=== PATIENT | male | born 1980 | race Caucasian/White ===

== ENCOUNTER 2019-09-14 17:02 | Inpatient (IN) | payer OTHER ==
--- NOTE | 2019-09-14 17:44 | BHS.RME ---
Substance Use & Tx History - Substance Use History Benzodiazepines Substance amount: 4-6 4 mg Frequency of use: Daily Substance route: Oral Date of Last Use: 09/14/19 Cocaine (Powder) Substance amount: a few blasts Frequency of use: Less than 3 times per week Substance route: Inhalation (ex: sniffing or snorting) Date of Last Use: 09/12/19 Opiates (Other) Substance amount: Methadone 190 mg Frequency of use: Daily Substance route: Oral Date of Last Use: 09/14/19 ([facility]) Alcohol Substance amount: 6 - 12 oz beers daily Frequency of use: Daily Substance route: Oral Date of Last Use: 09/14/19 (1 p.m.) - Last Treatment Treatment type: Substance Use Disorder (NIRAJ) Where was last treatment: Opioid Treatment Program (OTP) ([facility]) Physical/Psych/Mental Status - Behavior General Behavior: Increased activity (restlessness, agitation) Eye Contact: Normal - Cooperativeness Cooperativeness: Cooperative - Thinking Thought Processes: Goal Directed Thought content: Future oriented - Physical Health Problems Is patient presently having any pain?: No Does patient presently have any injuries (include location): No Does patient currently have a fever: No CIWA Nausea/Vomitin-No Nausea/No Vomiting Muscle Tremors: 3 Anxiety: 4-Mod. Anxious/Guarded Agitation: 4-Moderately Restless Paroxysmal Sweats: 3 (Increased facial moisture) Orientation: 1-Uncertain about Date Tacttile Disturbances: 0-None Auditory Disturbances: 0-None Visual Disturbances: 0-None Headache: 0-None Present CIWA-Ar Total Score: 15
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
[2019-09-14 19:54] VITALS: BMI 25.9
[2019-09-14] MEDS ORDERED: IBUPROFEN 400 MG TABLET (FP) PO PRN (20:07)
[2019-09-14] MEDS ORDERED: MAGNESIUM CITRATE 300 ML BOTTLE PO PRN (20:07)
[2019-09-14] MEDS ORDERED: MAGNESIUM HYDROX 2400MG/30ML ORAL SUSPENSION 30 ML CUP PO PRN (20:07)
[2019-09-14] MEDS ORDERED: MAG HYDROX/AL HYDROX/SIMETH 30 ML UNIT-DOSE CUP PO PRN (20:07)
[2019-09-14] MEDS ORDERED: BISMUTH SUBSALICYLATE 524 MG/30 ML UD PO PRN (20:07)
[2019-09-14] MEDS ORDERED: ACETAMINOPHEN 325 MG TABLET (FP) PO PRN ×2 (20:07)
[2019-09-14] MEDS ORDERED: METHOCARBAMOL 500 MG TABLET PO PRN (20:07)
[2019-09-14] MEDS ORDERED: MENTHOL/PHENOL 1 EACH UD MM PRN (20:07)
[2019-09-14] MEDS ORDERED: chlordiazePOXIDE HCL 25 MG CAPSULE PO ONE (20:20)
[2019-09-14] MEDS: THIAMINE HCL 100 MG TABLET (FP) PO SCH (22:17)
[2019-09-14] MEDS: chlordiazePOXIDE HCL 25 MG CAPSULE PO SCH (22:17)
[2019-09-14] MEDS: ASPIRIN COATED 81 MG TABLET.EC PO SCH (22:18)
[2019-09-14] MEDS: MELATONIN 5 MG TABLETS PO PRN (22:18)
[2019-09-15] MEDS: chlordiazePOXIDE HCL 25 MG CAPSULE PO SCH ×4 (05:24→22:25)
[2019-09-15] MEDS ORDERED: METHADONE HCL 40 MG DISPERSABLE TABLET ONE (09:33)
[2019-09-15] MEDS ORDERED: METHADONE HCL 10 MG TABLET ONE (09:33)
--- NOTE | 2019-09-15 09:42 | EKG ---
Test Reason : Blood Pressure : / mmHG Vent. Rate : 058 BPM Atrial Rate : 058 BPM P-R Int : 142 ms QRS Dur : 088 ms QT Int : 470 ms P-R-T Axes : 035 032 033 degrees QTc Int : 461 ms SINUS BRADYCARDIA POSSIBLE LEFT ATRIAL ENLARGEMENT BORDERLINE ECG NO PREVIOUS ECGS AVAILABLE Confirmed by Marciano Rodriguez MD ([id number]) on 09/15/2019 9:42:11 AM Referred By: Confirmed By:Marciano Rodriguez MD
[2019-09-15] MEDS ORDERED: METHADONE HCL 10 MG TABLET PO ONE (10:00)
[2019-09-15] MEDS ORDERED: METHADONE 160 MG, METHADONE 30 MG PO ONE (10:00)
[2019-09-15 10:04] LABS: HEMATOCRIT 37.1 % (35.4-49); HEMOGLOBIN 12.5 GM/dL (11.7-16.9); MCH 31.8 pg (25.7-33.7); MCHC 33.6 g/dl (32.0-35.9); MEAN CELL VOLUME 94.4 fl (80-96); MEAN PLT VOLUME 8.2 fl (7.5-11.1); PLATELET COUNT 230 K/MM3 (134-434); RBC 3.93 M/mm3 (4.00-5.60); RDW 13.6 % (11.9-15.9); WHITE BLOOD COUNT 7.7 K/mm3 (4.0-10.0)
[2019-09-15] MEDS: PRENATAL VITAMINS W/ FOLIC ACID TABLET (FP) PO SCH (10:14)
[2019-09-15 10:15] LABS: ALBUMIN 3.4 g/dl (3.4-5.0); BILIRUBIN,TOTAL 0.4 mg/dL (0.2-1); BLOOD UREA NITROGEN 16.1 mg/dL (7-18); CALCIUM 8.8 mg/dL (8.5-10.1); POTASSIUM 3.8 mmol/L (3.5-5.1); TOT PROT 6.3 g/dl (6.4-8.2)
[2019-09-15] MEDS: ASPIRIN COATED 81 MG TABLET.EC PO SCH (10:15)
--- NOTE | 2019-09-15 10:46 | PN ---
[facility] CIWA - CIWA Score Nausea/Vomitin-Mild Nausea/No Vomiting Muscle Tremors: 3 Anxiety: 4-Mod. Anxious/Guarded Agitation: 1-Slight > Activity Paroxysmal Sweats: 2 Orientation: 0-Oriented Tacttile Disturbances: 0-None Auditory Disturbances: 0-None Visual Disturbances: 1-Very Mild Sensitivity Headache: 0-None Present CIWA-Ar Total Score: 12 S Progress Note (SOAP) Subjective: 39 years old male admitted on 09/14/19 for benzo withdrawal sx management treating with librium detox feeling ok today ate breakfast ambulating in room alert speech clearly methadone 190 mg po daily verified Objective: 09/15/19 10:49 Vital Signs Temperature 97.0 F L 09/15/19 08:37 Pulse Rate 60 09/15/19 08:37 Respiratory Rate 20 09/15/19 08:37 Blood Pressure 105/59 L 09/15/19 08:37 O2 Sat by Pulse Oximetry (%) Laboratory Last Values WBC 7.7 K/mm3 (4.0-10.0) 09/15/19 07:30 RBC 3.93 M/mm3 (4.00-5.60) L 09/15/19 07:30 Hgb 12.5 GM/dL (11.7-16.9) 09/15/19 07:30 Hct 37.1 % (35.4-49) 09/15/19 07:30 MCV 94.4 fl (80-96) 09/15/19 07:30 MCH 31.8 pg (25.7-33.7) 09/15/19 07:30 MCHC 33.6 g/dl (32.0-35.9) 09/15/19 07:30 RDW 13.6 % (11.9-15.9) 09/15/19 07:30 Plt Count 230 K/MM3 (134-434) 09/15/19 07:30 MPV 8.2 fl (7.5-11.1) 09/15/19 07:30 Sodium 139 mmol/L (136-145) 09/15/19 07:30 Potassium 3.8 mmol/L (3.5-5.1) 09/15/19 07:30 Chloride 105 mmol/L (98-107) 09/15/19 07:30 Carbon Dioxide 29 mmol/L (21-32) 09/15/19 07:30 Anion Gap 5 MMOL/L (8-16) L 09/15/19 07:30 BUN 16.1 mg/dL (7-18) 09/15/19 07:30 Creatinine 1.0 mg/dL (0.55-1.3) 09/15/19 07:30 Est GFR (CKD-EPI)AfAm 109.40 09/15/19 07:30 Est GFR (CKD-EPI)NonAf 94.39 09/15/19 07:30 Random Glucose 105 mg/dL (74-106) 09/15/19 07:30 Calcium 8.8 mg/dL (8.5-10.1) 09/15/19 07:30 Total Bilirubin 0.4 mg/dL (0.2-1) 09/15/19 07:30 AST 11 U/L (15-37) L 09/15/19 07:30 ALT 21 U/L (13-61) 09/15/19 07:30 Alkaline Phosphatase 85 U/L (45-117) 09/15/19 07:30 Total Protein 6.3 g/dl (6.4-8.2) L 09/15/19 07:30 Albumin 3.4 g/dl (3.4-5.0) 09/15/19 07:30 lab noted Assessment: 09/15/19 10:50 benzo withdrawal Plan: librium regiment
[2019-09-15] MEDS: chlordiazePOXIDE HCL 25 MG CAPSULE PO PRN (12:01)
--- NOTE | 2019-09-15 17:12 | CONSULT ---
[facility] Psychiatric Consult - Data Date of interview: 09/15/19 Admission source: [facility] Identifying data: First visit to [facility] and admission to [address] [place] [address] for this 39 y/o male self-referred for detoxification treatment. NIRAJ issues : opioid, benzodiazepine (xanax), cocaine, alcohol. Patient is single, domiciled, no children, unemployed and dependent on relatives for financial assistance. Substance Abuse History: Discussed with the patient. Details in current [facility] erport as follows : Smoking history: Never smoked. Substances abused. Alprazolam (Xanax). Substance route: Oral. Frequency: Daily. Amount used: 8mg. Age of first use: 36. Date of last use: 09/14/19. Cocaine. Substance route: Inhalation. Frequency: 1-2 times per week. Amount used: 1 bag. Age of first use: 29. Date of last use: 09/12/19 Medical History: Patient endorses good general health. Psychiatric History: Patient denies history of psychiatric hospitalizations, OPD care or suicide attempts. Mr Quintanilla is currenly on methadone maintenance ( 190 mg/day) at the [facility] MMTP program ([facility]). Physical/Sexual Abuse/Trauma History: Patient denies. Additional Comment: Urine drug screen results: MITA-Cocaine, MOP-Opiates, BZO- Benzodiazepine. Noted. Mental Status Exam - Mental Status Exam Alert and Oriented to: Time, Place, Person Cognitive Function: Good Patient Appearance: Well Groomed (tattoos on both forearms) Mood: Hopeful, Euthymic Affect: Appropriate, Normal Range Patient Behavior: Appropriate, Cooperative Speech Pattern: Clear, Appropriate Voice Loudness: Normal Thought Process: Intact, Goal Oriented Thought Disorder: Not Present Hallucinations: Denies Suicidal Ideation: Denies Homicidal Ideation: Denies Insight/Judgement: Poor Sleep: Well Appetite: Good Gait/Station: Normal Psychiatric Findings - Problem List ([place] 1, 2,3) (1) Opioid dependence on agonist therapy Current Visit: Yes Status: Chronic (2) Alcohol abuse Current Visit: Yes Status: Chronic (3) Cocaine abuse Current Visit: Yes Status: Chronic (4) Sedative abuse Current Visit: Yes Status: Chronic - Initial Treatment Plan Initial Treatment Plan: Psychoeducation. Sleep hygiene. Detoxification. Support. AA/NA meetings. Observation.
[2019-09-15] MEDS: THIAMINE HCL 100 MG TABLET (FP) PO SCH (22:25)
[2019-09-15] MEDS: MELATONIN 5 MG TABLETS PO PRN (22:26)
[2019-09-15] MEDS: hydrOXYzine PAMOATE 25 MG CAPSULE (FP) PO PRN (23:53)
[2019-09-16] MEDS ORDERED: METHADONE HCL 10 MG TABLET ONE (04:43)
[2019-09-16] MEDS ORDERED: METHADONE HCL 40 MG DISPERSABLE TABLET ONE (04:43)
[2019-09-16] MEDS: chlordiazePOXIDE HCL 25 MG CAPSULE PO SCH ×4 (05:19→22:18)
[2019-09-16] MEDS: METHADONE 160 MG, METHADONE 30 MG PO SCH (05:19)
[2019-09-16] MEDS ORDERED: METHADONE HCL 10 MG TABLET PO SCH (06:00)
[2019-09-16] MEDS: PRENATAL VITAMINS W/ FOLIC ACID TABLET (FP) PO SCH (10:26)
[2019-09-16] MEDS: ASPIRIN COATED 81 MG TABLET.EC PO SCH (10:26)
[2019-09-16] MEDS: hydrOXYzine PAMOATE 25 MG CAPSULE (FP) PO PRN ×2 (11:59→17:51)
[2019-09-16] MEDS: chlordiazePOXIDE HCL 25 MG CAPSULE PO PRN (15:18)
--- NOTE | 2019-09-16 15:28 | PN ---
S CIWA - CIWA Score Nausea/Vomitin-No Nausea/No Vomiting Muscle Tremors: 2 Anxiety: 4-Mod. Anxious/Guarded Agitation: 0-Normal Activity Paroxysmal Sweats: 1-Minimal Palms Moist Orientation: 0-Oriented Tacttile Disturbances: 0-None Auditory Disturbances: 0-None Visual Disturbances: 1-Very Mild Sensitivity Headache: 1-Very Mild CIWA-Ar Total Score: 9 BHS Progress Note (SOAP) Subjective: 39 years old male admitted on 09/14/19 for benzo withdrawal sx management treating with librium detox regiment anxiety restlessness trouble to fall asleep at night Objective: 09/16/19 15:27 Vital Signs Temperature 97.8 F 09/16/19 12:48 Pulse Rate 64 09/16/19 12:48 Respiratory Rate 18 09/16/19 12:48 Blood Pressure 97/58 L 09/16/19 12:48 O2 Sat by Pulse Oximetry (%) Laboratory Last Values WBC 7.7 K/mm3 (4.0-10.0) 09/15/19 07:30 RBC 3.93 M/mm3 (4.00-5.60) L 09/15/19 07:30 Hgb 12.5 GM/dL (11.7-16.9) 09/15/19 07:30 Hct 37.1 % (35.4-49) 09/15/19 07:30 MCV 94.4 fl (80-96) 09/15/19 07:30 MCH 31.8 pg (25.7-33.7) 09/15/19 07:30 MCHC 33.6 g/dl (32.0-35.9) 09/15/19 07:30 RDW 13.6 % (11.9-15.9) 09/15/19 07:30 Plt Count 230 K/MM3 (134-434) 09/15/19 07:30 MPV 8.2 fl (7.5-11.1) 09/15/19 07:30 Sodium 139 mmol/L (136-145) 09/15/19 07:30 Potassium 3.8 mmol/L (3.5-5.1) 09/15/19 07:30 Chloride 105 mmol/L (98-107) 09/15/19 07:30 Carbon Dioxide 29 mmol/L (21-32) 09/15/19 07:30 Anion Gap 5 MMOL/L (8-16) L 09/15/19 07:30 BUN 16.1 mg/dL (7-18) 09/15/19 07:30 Creatinine 1.0 mg/dL (0.55-1.3) 09/15/19 07:30 Est GFR (CKD-EPI)AfAm 109.40 09/15/19 07:30 Est GFR (CKD-EPI)NonAf 94.39 09/15/19 07:30 Random Glucose 105 mg/dL (74-106) 09/15/19 07:30 Calcium 8.8 mg/dL (8.5-10.1) 09/15/19 07:30 Total Bilirubin 0.4 mg/dL (0.2-1) 09/15/19 07:30 AST 11 U/L (15-37) L 09/15/19 07:30 ALT 21 U/L (13-61) 09/15/19 07:30 Alkaline Phosphatase 85 U/L (45-117) 09/15/19 07:30 Total Protein 6.3 g/dl (6.4-8.2) L 09/15/19 07:30 Albumin 3.4 g/dl (3.4-5.0) 09/15/19 07:30 RPR Titer Nonreactive (NONREACTIVE) 09/15/19 07:30 lab noted Assessment: 09/16/19 15:28 benzo withdrawal Plan: librium regiment
[2019-09-16] MEDS: THIAMINE HCL 100 MG TABLET (FP) PO SCH (22:18)
[2019-09-16] MEDS: MELATONIN 5 MG TABLETS PO PRN (22:18)
[2019-09-17] MEDS ORDERED: METHADONE HCL 40 MG DISPERSABLE TABLET ONE (05:09)
[2019-09-17] MEDS ORDERED: METHADONE HCL 10 MG TABLET ONE (05:09)
[2019-09-17] MEDS: METHADONE 160 MG, METHADONE 30 MG PO SCH (05:39)
[2019-09-17] MEDS: chlordiazePOXIDE HCL 10 MG CAPSULE PO SCH ×2 (05:40→17:22)
[2019-09-17] MEDS: PRENATAL VITAMINS W/ FOLIC ACID TABLET (FP) PO SCH (10:24)
[2019-09-17] MEDS: ASPIRIN COATED 81 MG TABLET.EC PO SCH (10:24)
[2019-09-17] MEDS: hydrOXYzine PAMOATE 25 MG CAPSULE (FP) PO PRN ×3 (10:25→23:57)
--- NOTE | 2019-09-17 14:31 | PN ---
S CIWA - CIWA Score Nausea/Vomitin-No Nausea/No Vomiting Muscle Tremors: None Anxiety: 4-Mod. Anxious/Guarded Agitation: 2 Paroxysmal Sweats: No Perspiration Orientation: 0-Oriented Tacttile Disturbances: 0-None Auditory Disturbances: 0-None Visual Disturbances: 0-None Headache: 0-None Present CIWA-Ar Total Score: 6 BHS Progress Note (SOAP) Subjective: 39 years old male admitted on 09/14/19 for benzo withdrawal sx management treating with librium detox regiment reports long history of anxiety requests to be seen by a psychiatrist that vistaril does not work for him psychiatrist referral trouble sleep at night belsomra 5 mg po x 1 Objective: 09/17/19 14:34 Vital Signs Temperature 97.8 F 09/17/19 12:40 Pulse Rate 75 09/17/19 12:40 Respiratory Rate 18 09/17/19 12:40 Blood Pressure 111/75 09/17/19 12:40 O2 Sat by Pulse Oximetry (%) Laboratory Last Values WBC 7.7 K/mm3 (4.0-10.0) 09/15/19 07:30 RBC 3.93 M/mm3 (4.00-5.60) L 09/15/19 07:30 Hgb 12.5 GM/dL (11.7-16.9) 09/15/19 07:30 Hct 37.1 % (35.4-49) 09/15/19 07:30 MCV 94.4 fl (80-96) 09/15/19 07:30 MCH 31.8 pg (25.7-33.7) 09/15/19 07:30 MCHC 33.6 g/dl (32.0-35.9) 09/15/19 07:30 RDW 13.6 % (11.9-15.9) 09/15/19 07:30 Plt Count 230 K/MM3 (134-434) 09/15/19 07:30 MPV 8.2 fl (7.5-11.1) 09/15/19 07:30 Sodium 139 mmol/L (136-145) 09/15/19 07:30 Potassium 3.8 mmol/L (3.5-5.1) 09/15/19 07:30 Chloride 105 mmol/L (98-107) 09/15/19 07:30 Carbon Dioxide 29 mmol/L (21-32) 09/15/19 07:30 Anion Gap 5 MMOL/L (8-16) L 09/15/19 07:30 BUN 16.1 mg/dL (7-18) 09/15/19 07:30 Creatinine 1.0 mg/dL (0.55-1.3) 09/15/19 07:30 Est GFR (CKD-EPI)AfAm 109.40 09/15/19 07:30 Est GFR (CKD-EPI)NonAf 94.39 09/15/19 07:30 Random Glucose 105 mg/dL (74-106) 09/15/19 07:30 Calcium 8.8 mg/dL (8.5-10.1) 09/15/19 07:30 Total Bilirubin 0.4 mg/dL (0.2-1) 09/15/19 07:30 AST 11 U/L (15-37) L 09/15/19 07:30 ALT 21 U/L (13-61) 09/15/19 07:30 Alkaline Phosphatase 85 U/L (45-117) 09/15/19 07:30 Total Protein 6.3 g/dl (6.4-8.2) L 09/15/19 07:30 Albumin 3.4 g/dl (3.4-5.0) 09/15/19 07:30 RPR Titer Nonreactive (NONREACTIVE) 09/15/19 07:30 lab noted Assessment: 09/17/19 14:34 benzo withdrawal Plan: librium regiment received methadone 190 mg today
--- NOTE | 2019-09-17 14:35 | PN ---
Psychiatric Progress Note Vital Signs: Vital Signs Period Temp Pulse Resp BP Sys/Murphy Pulse Ox Last 24 Hr 96.4 F-97.8 F 59-84 16-18 104-111/68-75 Date of Session: 09/17/19 Chief Complaint:: " I have anxiety and difficulty sleeping." HPI: Patient admitted to for opioid, benzodiazepine (xanax), cocaine, and alcohol dependence. ROS: Patient is anxious, alert +oriented X3. Current Medications: Active Medications Generic Name Dose Route Start Last Admin Trade Name Freq PRN Reason Stop Dose Admin Acetaminophen 650 mg 09/14/19 20:07 Tylenol - PO Q6H PRN PAIN LEVEL 4 - 6 Acetaminophen 650 mg 09/14/19 20:07 Tylenol - PO Q6H PRN FEVER Al Hydroxide/Mg Hydroxide 30 ml 09/14/19 20:07 Mylanta Oral Suspension - PO Q6H PRN DYSPEPSIA Aspirin 81 mg 09/14/19 22:00 09/17/19 10:24 Ecotrin - PO 81 mg DAILY MAJOR Administration Bismuth Subsalicylate 524 mg 09/14/19 20:07 Pepto-Bismol - PO Q1H PRN DIARRHEA Chlordiazepoxide HCl 10 mg 09/17/19 05:00 09/17/19 05:40 Librium - PO 09/17/19 17:01 10 mg Q12H MAJOR Administration Chlordiazepoxide HCl 10 mg 09/18/19 05:00 Librium - PO 09/18/19 05:01 ONCE@0500 ONE Eucalyptus/Menthol/Phenol/Sorbitol 1 each 09/14/19 20:07 Cepastat Lozenge - MM 09/20/19 20:07 Q4H PRN SORE THROAT Gabapentin 200 mg 09/17/19 14:15 Neurontin - PO TID MAJOR Hydroxyzine Pamoate 25 mg 09/14/19 20:07 09/17/19 10:25 Vistaril - PO 09/20/19 20:07 25 mg Q6H PRN Administration For Anxiety Ibuprofen 400 mg 09/14/19 20:07 Motrin - PO Q6H PRN PAIN LEVEL 1 - 3 Magnesium Citrate 300 ml 09/14/19 20:07 Citroma - PO Q48H PRN CONSTIPATION Magnesium Hydroxide 30 ml 02/24/20 20:07 Milk Of Magnesia - PO PRN PRN CONSTIPATION Melatonin 5 mg 09/14/19 20:07 09/16/19 22:18 Melatonin PO 5 mg HS PRN Administration INSOMNIA Methadone HCl 160 mg/ 190 mg 09/16/19 06:00 09/17/19 05:39 Methadone HCl 30 mg PO 09/22/19 05:59 190 mg DAILY@0600 MAJOR Administration Methocarbamol 500 mg 09/14/19 20:07 Robaxin - PO 09/20/19 20:07 Q6H PRN MUSCLE SPASMS Multivit/Folic Acid/Iron 1 tab 09/15/19 10:00 09/17/19 10:24 Vitamins (Sjr) - PO 1 tab DAILY MAJOR Administration Suvorexant 5 mg 09/17/19 22:00 Belsomra PO 09/18/19 21:59 HS MAJOR Thiamine HCl 100 mg 09/14/19 22:00 09/16/19 22:18 Vitamin B1 - PO 100 mg HS MAJOR Administration Medication(s) Change(s): Yes. Will add gabapentin 200mg TID. 1) Will d/c vistaril 25mg q6h and will order vistaril 25mg q4h. 3) Will order seroquel 50mg for insomnia. Current Side Effect: No Lab tests ordered: No Lab tests reviewed: Yes Provider note:: Patient reports difficulty sleeping and anxiety that has worsen due to the librium being tapered. He reports history of taking xanax, as much as 12mg per day. Patient accepted vistaril 25mg but stated that it was not very effective. Medications reviewed and adjustments made. Please review the section pertaining to medication changes. Patient educated on the importance of proper sleep hygiene and utilizing his coping skills to manage his anxiety. Patient satisifed and receptive to feedback. Benefits and side effects discussed. Verbal consent given. Total face to face time:: 25 Mental Status Exam - Mental Status Exam Alert and Oriented to: Time, Place, Person Cognitive Function: Good Patient Appearance: Well Groomed Mood: Anxious Affect: Appropriate Patient Behavior: Appropriate, Cooperative Speech Pattern: Clear, Appropriate Voice Loudness: Normal Thought Process: Intact, Goal Oriented Thought Disorder: Not Present Hallucinations: Denies Suicidal Ideation: Denies Homicidal Ideation: Denies Insight/Judgement: Poor Sleep: Poorly Appetite: Fair Muscle strength/Tone: Normal Gait/Station: Normal Psychiatric Treatment Plan - Problem List (1) Substance-induced sleep disorder Current Visit: Yes (2) Alcohol abuse Current Visit: Yes (3) Cocaine abuse Current Visit: Yes (4) Opioid dependence on agonist therapy Current Visit: Yes (5) Sedative abuse Current Visit: Yes (6) Substance-induced anxiety disorder Current Visit: Yes
[2019-09-17] MEDS: GABAPENTIN 100 MG CAPSULE PO SCH ×2 (15:32→22:06)
[2019-09-17] MEDS ORDERED: QUEtiapine FUMARATE 50 MG TABLET PO SCH (22:00)
[2019-09-17] MEDS ORDERED: SUVOREXANT 5 MG TABLET PO SCH (22:00)
[2019-09-17] MEDS: THIAMINE HCL 100 MG TABLET (FP) PO SCH (22:07)
[2019-09-17] MEDS: MELATONIN 5 MG TABLETS PO PRN (23:57)
[2019-09-18] MEDS ORDERED: METHADONE HCL 10 MG TABLET ONE (04:21)
[2019-09-18] MEDS ORDERED: METHADONE HCL 40 MG DISPERSABLE TABLET ONE (04:21)
[2019-09-18] MEDS ORDERED: chlordiazePOXIDE HCL 10 MG CAPSULE PO ONE (05:00)
[2019-09-18] MEDS: METHADONE 160 MG, METHADONE 30 MG PO SCH (05:31)
[2019-09-18] MEDS: GABAPENTIN 100 MG CAPSULE PO SCH (05:31)
[2019-09-18] MEDS: hydrOXYzine PAMOATE 25 MG CAPSULE (FP) PO PRN ×2 (08:46→12:47)
[2019-09-18 09:27] VITALS: PULSE 89
--- NOTE | 2019-09-18 09:52 | DS ---
[facility] Detox Discharge Summary Admission Date: 09/14/19 Discharge Date: 09/18/19 - History Present History: Alcohol Dependence, Sedative Dependence - Physical Exam Results Vital Signs: Vital Signs Temperature 97.1 F L 09/18/19 08:52 Pulse Rate 89 09/18/19 08:52 Respiratory Rate 18 09/18/19 08:52 Blood Pressure 119/76 09/18/19 08:52 O2 Sat by Pulse Oximetry (%) Pertinent Admission Physical Exam Findings: PE Gnl: WDWN, in no distress Mental status: awake, alert, nl language Motor: moves limbs symetrically Gait: steady - Treatment Hospital Course: Detox Protocol Followed, Detoxed Safely, Responded well, Discharged Condition Good, Rehab Referral Accepted - Medication Discharge Medications: Ambulatory Orders Alprazolam [Xanax] 0.25 mg PO QID 09/14/19 - Diagnosis (1) Alcohol abuse Current Visit: Yes Status: Acute (2) Opioid dependence on agonist therapy Current Visit: Yes Status: Chronic (3) Sedative abuse Current Visit: Yes Status: Acute - AMA Did Patient Leave Against Medical Advice: No
[2019-09-18] MEDS: PRENATAL VITAMINS W/ FOLIC ACID TABLET (FP) PO SCH (10:10)
[2019-09-18] MEDS: ASPIRIN COATED 81 MG TABLET.EC PO SCH (10:10)
[2019-09-18 13:17] VITALS: BP 133/84; TEMP 98.9
== END 2019-09-18 13:40 | disposition other institution (70) | DRG 773 ==
LOC: YASAS 17:02 → Y3N 19:35
PROVIDERS: ADMIT Allergy & Immunology; ATTEND Allergy & Immunology
PROC: HZ2ZZZZ Detoxification Services for Substance Abuse Treatment (ICD-10-PCS; principal; 2019-09-14)
DX: F10.230 Alcohol dependence with withdrawal, uncomplicated (principal); F11.20 Opioid dependence, uncomplicated; F13.230 Sedative, hypnotic or anxiolytic dependence with withdrawal, uncomplicated; F14.20 Cocaine dependence, uncomplicated; F19.280 Other psychoactive substance dependence with psychoactive substance-induced anxiety disorder; F19.282 Other psychoactive substance dependence with psychoactive substance-induced sleep disorder; M54.89 Other dorsalgia; G89.29 Other chronic pain
CPT/HCPCS: 36415; 80053; 85027; 86593; 93005; 93010

== ENCOUNTER 2019-09-18 13:51 | Inpatient (IN) | payer OTHER ==
--- NOTE | 2019-09-18 15:50 | HP ---
[facility] Rehab Assess/Revision - Admission History Admitted to Rehab from: [facility] Date of Admission to Rehab: 09/18/19 - Vital signs Vital Signs: Vital Signs Period Temp Pulse Resp BP Sys/Murphy Pulse Ox Last 24 Hr 98.2 F 81 16 108/63 - Findings Detox History & Physical reviewed: Yes Concur with findings: Yes Inpatient Rehab Admission - Rehab Decision to Admit Inpatient rehab admission?: Yes - Initial Determination Are CD services needed?: Yes Free of communicable disease: Yes Not in need of hospitalization: Yes - Rehab Admission Criteria Previous failed treatment: Yes Poor recovery environment: Yes Comorbidities: Yes Lacks judgement: Yes Patient is meeting Inpatient Rehab admission criteria:: Yes
[2019-09-18] MEDS ORDERED: MAGNESIUM CITRATE 300 ML BOTTLE PO PRN (15:51)
[2019-09-18] MEDS ORDERED: MAG HYDROX/AL HYDROX/SIMETH 30 ML UNIT-DOSE CUP PO PRN (15:51)
[2019-09-18] MEDS ORDERED: hydrOXYzine PAMOATE 25 MG CAPSULE (FP) PO PRN (15:51)
[2019-09-18] MEDS ORDERED: P-EPHED 60MG/TRIPROLIDI 2.5MG TABLET PO PRN (15:51)
[2019-09-18] MEDS ORDERED: IBUPROFEN 400 MG TABLET (FP) PO PRN (15:51)
[2019-09-18] MEDS ORDERED: MAGNESIUM HYDROX 2400MG/30ML ORAL SUSPENSION 30 ML CUP PO PRN (15:51)
[2019-09-18] MEDS ORDERED: MENTHOL/PHENOL 1 EACH UD MM PRN (15:51)
[2019-09-18] MEDS ORDERED: LOPERAMIDE HCL 2 MG CAPSULE PO PRN (15:51)
[2019-09-18] MEDS ORDERED: ACETAMINOPHEN 325 MG TABLET (FP) PO PRN (15:51)
[2019-09-18] MEDS ORDERED: guaiFENesin 200 MG/10 ML 10 ML UNIT-DOSE CUPS PO PRN (15:51)
--- NOTE | 2019-09-18 16:40 | CONSULT ---
[facility] Psychiatric Consult - Data Date of interview: 09/18/28 Admission source: [facility] Identifying data: Patient is a 39 year old single male, without children, unemployed, domiciled, and is financially supported by family. This is patient' s first admission to rehab at [facility]. Patient admitted to for alcohol and benzodiazepine dependence. Substance Abuse History: Smoking Cessation. Smoking history: Never smoked. - Substances abused. Alprazolam (Xanax). Substance route: Oral. Frequency: Daily. Amount used: 8mg. Age of first use: 36. Date of last use: 09/14/19. * * Cocaine. Substance route: Inhalation. Frequency: 1-2 times per week. Amount used: 1 bag. Age of first use: 29. Date of last use: 09/12/19 Medical History: denies. endorses good health. Psychiatric History: Patient's first psychiatric contact was approximately eight months ago. Mr. Quintanilla reports seeing an outpatient psychiatrist who diagnosed him with ADHD +anxiety disorder +Bipolar I disorder. States that he was prescribed stimulants + Seroquel 100mg HS. During the same time, his PCP was prescribing patient xanax 4mg daily. Patient is no longer followed by a psychiatrist. He denies history of psychiatric hospitalization and suicide attempt. At present patient reports ongoing anxiety. No depressive, manic or psychosis noted. Physical/Sexual Abuse/Trauma History: denies. Additional Comment: Patient is on methadone 190mg. Mental Status Exam - Mental Status Exam Alert and Oriented to: Time, Place, Person Cognitive Function: Good Patient Appearance: Well Groomed Mood: Anxious Affect: Mood Congruent Patient Behavior: Appropriate, Cooperative Speech Pattern: Clear, Appropriate Voice Loudness: Normal Thought Process: Intact, Goal Oriented Thought Disorder: Not Present Hallucinations: Denies Suicidal Ideation: Denies Homicidal Ideation: Denies Insight/Judgement: Poor Sleep: Poorly Appetite: Fair Muscle strength/Tone: Normal Gait/Station: Normal Psychiatric Findings - Problem List ([place] 1, 2,3) (1) Alcohol abuse Current Visit: Yes Status: Acute (2) Sedative abuse Current Visit: Yes Status: Acute (3) Substance-induced anxiety disorder Current Visit: Yes Status: Acute (4) Substance-induced sleep disorder Current Visit: Yes Status: Acute (5) Cocaine abuse Current Visit: Yes Status: Chronic (6) Opioid dependence on agonist therapy Current Visit: Yes Status: Chronic - Initial Treatment Plan Initial Treatment Plan: Psychoeducation provided. Rehab in progress. Will continue gabapentin 200mg TID + Belsomra 10mg HS + Melatonin 10mg HS + Vistaril 50mg q4h for anxiety. Benefits and side effects discussed. Verbal consent given.
[2019-09-18] MEDS: hydrOXYzine PAMOATE 25 MG CAPSULE (FP) PO PRN ×2 (16:59→21:10)
[2019-09-18] MEDS ORDERED: GABAPENTIN 100 MG CAPSULE PO ONE (17:00)
[2019-09-18] MEDS: GABAPENTIN 100 MG CAPSULE PO SCH (21:09)
[2019-09-18] MEDS ORDERED: THIAMINE HCL 100 MG TABLET (FP) PO SCH (22:00)
[2019-09-18] MEDS ORDERED: SUVOREXANT 10 MG TABLET PO PRN (22:00)
[2019-09-18] MEDS ORDERED: MELATONIN 5 MG TABLETS PO PRN ×2 (22:00)
[2019-09-19] MEDS ORDERED: METHADONE HCL 40 MG DISPERSABLE TABLET ONE (04:11)
[2019-09-19] MEDS ORDERED: METHADONE HCL 10 MG TABLET ONE (04:11)
[2019-09-19] MEDS ORDERED: METHADONE HCL 10 MG TABLET PO SCH (06:00)
[2019-09-19] MEDS ORDERED: METHADONE 160 MG, METHADONE 30 MG PO SCH (06:00)
[2019-09-19] MEDS: GABAPENTIN 100 MG CAPSULE PO SCH ×2 (06:14→13:46)
[2019-09-19] MEDS: hydrOXYzine PAMOATE 25 MG CAPSULE (FP) PO PRN ×2 (06:15→10:53)
[2019-09-19 07:24] VITALS: BP 110/73; PULSE 62; TEMP 97.2
[2019-09-19] MEDS ORDERED: PRENATAL VITAMINS W/ FOLIC ACID TABLET (FP) PO SCH (10:00)
[2019-09-19] MEDS ORDERED: PNEUMOCOCCAL 23 VACCINE 0.5 ML VIAL IM ONE (12:00)
[2019-09-19] MEDS ORDERED: PNEUMOC 13-VAL CONJ-DIP CRM/PF 0.5 ML DISP.SYRIN IM ONE (13:00)
--- NOTE | 2019-09-19 15:26 | PN ---
[facility] Progress Note Note: informed by SURAJ Montes that patient would like to leave alert,oriented x 3 ambulation on the unit heart normal heart sound,s1s2 lung clear no abdominal pain all attempts to convince patient to stay with no avail Vital Signs Temperature 97.2 F L 09/19/19 07:23 Pulse Rate 62 09/19/19 07:23 Respiratory Rate 16 09/19/19 07:23 Blood Pressure 110/73 09/19/19 07:23 O2 Sat by Pulse Oximetry (%) patient is on methadone maintenance 190 mgs/day,last medicated today,this has been addressed with patient,patient understood,the risk of relapsing is high, patient understood,patient signed release ama,seen by counselor, left the unit in stable condition stated his parent will pick him up to come home,he lived with his parent,also mentioned he mis his methadone dose before,he will go to his program early on Saturday
--- NOTE | 2019-09-19 15:41 | DS ---
[facility] Rehab Discharge Summary - [facility] Rehab Discharge Summary Admission Date: 09/18/19 Discharge Date: 09/20/19 - History Present History: Alcohol dependence, Cocaine dependence, MMTP, Sedative dependence Additional Comments: alert,oriented x 3 heart normal heart sound,s1s2 lung clear,no wheezing no abdominal pain ambulation on unit signed release ama seen by counselor left unit in stable condition,stated his parent is picking him up to come,will go to his [facility] clinic early on Saturday09/21/2019total discharge time 30 mins - Discharge Physical Exam Vital Signs: Vital Signs Temperature 97.2 F L 09/19/19 07:23 Pulse Rate 62 09/19/19 07:23 Respiratory Rate 16 09/19/19 07:23 Blood Pressure 110/73 09/19/19 07:23 O2 Sat by Pulse Oximetry (%) Pertinent Admission Physical Exam Findings: Vital Signs Temperature 97.2 F L 09/19/19 07:23 Pulse Rate 62 09/19/19 07:23 Respiratory Rate 16 09/19/19 07:23 Blood Pressure 110/73 09/19/19 07:23 O2 Sat by Pulse Oximetry (%) Laboratory Last Values HIV 1&2 Antibody Screen Negative 09/19/19 05:40 HIV P24 Antigen Negative 09/19/19 05:40 - Medication Discharge Medications: Ambulatory Orders Alprazolam [Xanax] 0.25 mg PO QID 09/14/19 Methadone [Dolophine -] 130 mg PO DAILY 09/18/19 - Discharge Instructions Diet, activity, other medical instructions: Diet: Activity: Other medical instructions: - Diagnosis (1) Alcohol abuse Status: Acute (2) Sedative abuse Status: Acute (3) Substance-induced anxiety disorder Status: Acute (4) Substance-induced sleep disorder Status: Acute (5) Cocaine abuse Status: Chronic (6) Opioid dependence on agonist therapy Status: Chronic - AMA Did Patient Leave Against Medical Advice: Yes Additional Comments: patient signed release ama,seen by counselor alert,oriented s 3 ambulation on the unit heart normal heart sound,s1s2 lung clear no abdominal pain signed release ama,seen by counselor left the unit in stable concidition,no suicidal,no homicidal tiem spending on discharge 30 mins,
== END 2019-09-19 15:30 | disposition left against medical advice (07) | DRG 770 ==
LOC: YASAS 13:51 → Y5N 13:54
PROVIDERS: ADMIT Allergy & Immunology; ATTEND Allergy & Immunology
PROC: HZ42ZZZ Group Counseling for Substance Abuse Treatment, Cognitive-Behavioral (ICD-10-PCS; principal; 2019-09-18)
DX: F10.20 Alcohol dependence, uncomplicated (principal); F11.20 Opioid dependence, uncomplicated; F13.20 Sedative, hypnotic or anxiolytic dependence, uncomplicated; F14.20 Cocaine dependence, uncomplicated; F19.280 Other psychoactive substance dependence with psychoactive substance-induced anxiety disorder; F19.282 Other psychoactive substance dependence with psychoactive substance-induced sleep disorder; F31.9 Bipolar disorder, unspecified; F41.9 Anxiety disorder, unspecified; F90.9 Attention-deficit hyperactivity disorder, unspecified type; Z56.0 Unemployment, unspecified
CPT/HCPCS: 36415; 87389

== ENCOUNTER 2020-03-21 14:14 | Inpatient (IN) | payer OTHER ==
--- NOTE | 2020-03-21 14:34 | BHS.RME ---
Substance Use & Tx History - Substance Use History Alcohol Substance amount: few shots of Arnulfo or 6 pack of beer Frequency of use: Daily Substance route: Oral Date of Last Use: 03/21/20 Cocaine- Powder Substance amount: $20 on weekend Frequency of use: Less than 3 times per week Substance route: Inhalation (ex: sniffing or snorting) Date of Last Use: 03/19/20 Xanax Substance amount: 0.5 mg one tab, max up to 8 mg Frequency of use: Daily Substance route: Oral Date of Last Use: 03/21/20 Ecstasy Substance amount: 2 tabs Frequency of use: Less than 3 times per week Substance route: Oral Date of Last Use: 03/19/20 - Last Treatment Date of last treatment: 09/14 to 09/18/19 detox, one day in Rehab left AMA Treatment type: Substance Use Disorder (NIRAJ) Where was last treatment: Detox Physical/Psych/Mental Status - Behavior General Behavior: Increased activity (restlessness, agitation) Eye Contact: Normal - Cooperativeness Cooperativeness: Cooperative - Thinking Thought Processes: Tight Thought content: Future oriented - Physical Health Problems Is patient presently having any pain?: Yes (chronic low back pain) Does patient presently have any injuries (include location): No Does patient currently have a fever: No CIWA Nausea/Vomitin-Mild Nausea/No Vomiting Muscle Tremors: 2 Anxiety: 4-Mod. Anxious/Guarded Agitation: 1-Slight > Activity Paroxysmal Sweats: No Perspiration Orientation: 0-Oriented Tacttile Disturbances: 0-None Auditory Disturbances: 0-None Visual Disturbances: 3-Moderate Sensitivity Headache: 2-Mild CIWA-Ar Total Score: 13
[2020-03-21 15:46] VITALS: BMI 26.6
--- NOTE | 2020-03-21 15:55 | HP ---
CIWA Score Nausea/Vomitin-Mild Nausea/No Vomiting Muscle Tremors: 2 Anxiety: 4-Mod. Anxious/Guarded Agitation: 1-Slight > Activity Paroxysmal Sweats: No Perspiration Orientation: 0-Oriented Tacttile Disturbances: 0-None Auditory Disturbances: 0-None Visual Disturbances: 3-Moderate Sensitivity Headache: 2-Mild CIWA-Ar Total Score: 13 - Admission Criteria OASAS Guidelines: Admission for Medically Managed Detox: Requires at least one of the followin. CIWA greater than 12 2. Seizures within the past 24 hours 3. Delirium tremens within the past 24 hours 4. Hallucinations within the past 24 hours 5. Acute intervention needed for co occurring medical disorder 6. Acute intervention needed for co occurring psychiatric disorder 7. Severe withdrawal that cannot be handled at a lower level of care (continued vomiting, continued diarrhea, abnormal vital signs) requiring intravenous medication and/or fluids 8. Admitting History and Physical - Admission Chief Complaint: detox History of Present Illness: Patient is a 39 y.o. M PMHx of depression, anxiety, adhd, on methadone presenting to [facility] for detox. Patient was examine in the room and is in no acute distress. 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 Patient states he had a seizure 1 year ago unsure if it was due to alcohol or benzo withdrawal. - Substance Use History Alcohol Substance amount: few shots of Arnulfo or 6 pack of beer Frequency of use: Daily Substance route: Oral Date of Last Use: 03/21/20 Cocaine- Powder Substance amount: $20 on weekend Frequency of use: Less than 3 times per week Substance route: Inhalation (ex: sniffing or snorting) Date of Last Use: 03/19/20 Xanax Substance amount: 0.5 mg one tab, max up to 8 mg Frequency of use: Daily Substance route: Oral Date of Last Use: 03/21/20 Ecstasy Substance amount: 2 tabs Frequency of use: Less than 3 times per week Substance route: Oral Date of Last Use: 03/19/20 - Last Treatment Date of last treatment: 09/14 to 09/18/19 detox, one day in Rehab left AMA Treatment type: Substance Use Disorder (NIRAJ) Where was last treatment: Detox History Source: Patient Limitations to Obtaining History: No Limitations - Past Medical History CREATIVE CONSULTANT: Yes: Seizure (1 year ago) Cardiovascular: No: HTN, Hyperlipdemia Pulmonary: No: COPD - Past Surgical History Past Surgical History: Yes: None - Smoking History Smoking history: Never smoked Have you smoked in the past 12 months: No - Alcohol/Substance Use Hx Alcohol Use: Yes Number of Drinks Daily: 6 History of Substance Use: reports: Cocaine - Social History Usual Living Arrangement: Yes: With Parent ADL: Independent History of Recent Travel: No Admission ROS BHS - HPI Allergies/Adverse Reactions: Allergies Allergy/AdvReac Type Severity Reaction Status Date / Time No Known Allergies Allergy Verified 03/21/20 15:34 Exam Limitations: No Limitations - Ebola screening Have you traveled outside of the country in the last 21 days: No Have you had contact with anyone from an Ebola affected area: No Have you been sick,other than usual withdrawal symptoms: No Do you have a fever: No - Review of Systems Constitutional: No Symptoms Reported EENT: reports: No Symptoms Reported Respiratory: denies: Cough, Shortness of Breath Cardiac: denies: Chest Pain, Lightheadedness GI: reports: No Symptoms Reported Neuro: reports: No Symptoms reported Psychiatric: reports: No Sypmtoms Reported, Judgement Intact, Mood/Affect Appropiate, Orientated x3, Anxious Patient History - Patient Medical History Hx Asthma: No Hx Chronic Obstructive Pulmonary Disease (COPD): No Hx Cardiac Disorders: No Hx Hypertension: No Hx Seizures: Yes (x1 -Benzos withdrawal) Hx Diabetes: No Hx Gastrointestinal Disorders: No Hx Genitourinary Disorders: No Hx Sexually Transmitted Disorders: Yes (Gonorrhea, Chlamydia, herpes, Syphilis) Hx Renal Disease (ESRD): No Hx Depression: Yes Hx Suicide Attempt: No Hx Schizophrenia: No - Patient Surgical History Past Surgical History: No Hx Neurologic Surgery: No Hx Cataract Extraction: No Hx Cardiac Surgery: No Hx Lung Surgery: No Hx Breast Surgery: No Hx Breast Biopsy: No Hx Abdominal Surgery: No Hx Appendectomy: No Hx Cholecystectomy: No Hx Genitourinary Surgery: No Hx Section: No Hx Orthopedic Surgery: No Anesthesia Reaction: No - PPD History Date: 09/16/19 Results: 0mm - Smoking Cessation Smoking history: Never smoked Have you smoked in the past 12 months: No Hx Chewing Tobacco Use: No - Substances abused Alcohol Substance route: Oral Frequency: Daily Amount used: 6 CANS OF BEER , FEW SHOTS Age of first use: 17 Date of last use: 03/21/20 Alprazolam (Xanax) Substance route: Oral Frequency: Daily Amount used: 8MG DAILY Age of first use: 30 Date of last use: 03/21/20 Cocaine Substance route: Inhalation Frequency: 1-2 times per week Amount used: $20 Age of first use: 20 Date of last use: 03/19/20 Admission Physical Exam [facility] - Vital Signs Vital Signs: Vital Signs - 24 hr 03/21/20 15:42 Temperature 97.8 F Pulse Rate 82 Respiratory 16 Rate Blood Pressure 121/82 - Physical General Appearance: Yes: Within Normal Limits HEENTM: No: Normal ENT Inspection Respiratory: Yes: Lungs Clear, Normal Breath Sounds, No Respiratory Distress, No Accessory Muscle Use Cardiology: Yes: Within Normal Limits, Regular Rhythm, Regular Rate Abdominal: Yes: Within Normal Limits, Normal Bowel Sounds, Non Tender, Flat, Soft Neurological: Yes: Within Normal Limits, Fully Oriented, Alert, Normal Mood/Affect, Normal Response - Diagnostic (1) Alcohol abuse Current Visit: No Status: Acute (2) Sedative abuse Current Visit: No Status: Acute (3) Substance-induced anxiety disorder Current Visit: No Status: Acute (4) Substance-induced sleep disorder Current Visit: No Status: Acute (5) Cocaine abuse Current Visit: No Status: Chronic (6) Opioid dependence on agonist therapy Current Visit: No Status: Chronic Cleared for Admission [facility] - Detox or Rehab [facility] Level of Care: Medically Managed Detox Regimen/Protocol: Librium, Methadone Breathalyzer - Breathalyzer Breathalyzer: 0 Vital Signs - Vital Signs Vital signs refused: No Temperature: 97.8 F Pulse Rate: 82 Respiratory Rate: 16 Blood Pressure: 121/82 - Height Height: 1.7 m - Weight Weight: 77.111 kg - BMI Body Mass Index (BMI): 26.6 Urine Drug Screen - Test Device Lot number: [id number] Expiration date: 10/27/21 - Control Is test valid?: Yes - Results Drug screen NEGATIVE: No Urine drug screen results: MET-Methamphetamine, AMP-Amphetamines, MTD-Methadone, BZO-Benzodiazepines Inpatient Rehab Admission - Rehab Decision to Admit Inpatient rehab admission?: No
[2020-03-21] MEDS ORDERED: MAGNESIUM CITRATE 300 ML BOTTLE PO PRN (16:00)
[2020-03-21] MEDS ORDERED: IBUPROFEN 400 MG TABLET (FP) PO PRN (16:00)
[2020-03-21] MEDS ORDERED: NICOTINE POLACRILEX 2 MG GUM BUC PRN (16:00)
[2020-03-21] MEDS ORDERED: ACETAMINOPHEN 325 MG TABLET (FP) PO PRN ×2 (16:00)
[2020-03-21] MEDS ORDERED: BISMUTH SUBSALICYLATE 524 MG/30 ML UD PO PRN (16:00)
[2020-03-21] MEDS ORDERED: MENTHOL/PHENOL 1 EACH UD MM PRN (16:00)
[2020-03-21] MEDS ORDERED: chlordiazePOXIDE HCL 25 MG CAPSULE PO PRN (16:00)
[2020-03-21] MEDS ORDERED: MAGNESIUM HYDROX 2400MG/30ML ORAL SUSPENSION 30 ML CUP PO PRN (16:00)
[2020-03-21] MEDS ORDERED: MAG HYDROX/AL HYDROX/SIMETH 30 ML UNIT-DOSE CUP PO PRN (16:00)
[2020-03-21] MEDS ORDERED: ONDANSETRON *ODT* 4 MG TABLET SL ONE (16:30)
[2020-03-21] MEDS: chlordiazePOXIDE HCL 25 MG CAPSULE PO SCH ×2 (17:02→22:24)
[2020-03-21] MEDS: hydrOXYzine PAMOATE 25 MG CAPSULE (FP) PO SCH ×2 (17:05→22:24)
[2020-03-21] MEDS: THIAMINE HCL 100 MG TABLET (FP) PO SCH (22:24)
[2020-03-21] MEDS: MELATONIN 5 MG TABLETS PO SCH (22:24)
[2020-03-22] MEDS: hydrOXYzine PAMOATE 25 MG CAPSULE (FP) PO SCH (05:11)
[2020-03-22] MEDS: chlordiazePOXIDE HCL 25 MG CAPSULE PO SCH ×4 (05:11→22:01)
--- NOTE | 2020-03-22 08:21 | CONSULT ---
[facility] Psychiatric Consult - Data Date of interview: 03/22/20 Admission source: Self-referred Identifying data: Mr Quintanilla is a 39 years old single male, unemployed, domiciled seeking detox treatment for alcohol, cocaine, benzodiazepine and MDMA Substance Abuse History: Reports history of alcohol, cocaine, xanax and ecstasy use. Refer to addiction counselor's summary for further information Medical History: Significant for COPD, hypertension, dyslipidemia, history of sedative withdrawal seizure and treatment for gonorrhea, genital herpes, syphilis and chlamydia. Patient is on methadone 170 mg/day from [facility]. Psychiatric History: Patient is known for previous admissions to this facility. He reports that his first psychiatric contact occured approximalely around January-Feb 2019 when he was diagnosed with ADHD, MDD, Anxiety by a psychiatrist located near his methadone program in the [place]. He said that he was started on Adderall and Seroquel which he took for only 2 months due to conflict with the provider. Told underwriter that due to Coronavirus Pandemic, it was difficult to find another provider. During his admission to this facility in August 2019, he saw JONAH Lyle and he was prescribed Gabapentin 200 mg/tid, Belsomra 10 mg/hs prn, Melatonin 10 mg/hs prn and Vistaril 50 mg/ q 6hrs prn. Denies previous psychiatric hospitalization or suicidal attemt. At present, reports feeling anxious and sleeping poorly Physical/Sexual Abuse/Trauma History: Denies history of abuse as a child or DV relationship as an adult Mental Status Exam - Mental Status Exam Alert and Oriented to: Time, Place, Person Cognitive Function: Fair Mood: Anxious Affect: Appropriate Patient Behavior: Cooperative Speech Pattern: Clear Voice Loudness: Normal Thought Process: Intact, Goal Oriented Thought Disorder: Not Present Hallucinations: Denies Suicidal Ideation: Denies Homicidal Ideation: Denies Insight/Judgement: Poor Sleep: Poorly Appetite: Poor Muscle strength/Tone: Normal Gait/Station: Normal Psychiatric Findings - Problem List ([place] 1, 2,3) (1) ADHD (attention deficit hyperactivity disorder) Current Visit: Yes Status: Chronic (2) Substance-induced anxiety disorder Current Visit: No Status: Acute (3) Substance-induced sleep disorder Current Visit: No Status: Acute (4) Alcohol dependence Current Visit: Yes Status: Acute (5) Sedative, hypnotic or anxiolytic dependence with intoxication, uncomplicated Current Visit: Yes Status: Acute (6) Cocaine abuse Current Visit: No Status: Acute (7) Opioid dependence on agonist therapy Current Visit: No Status: Chronic (8) HTN (hypertension) Current Visit: Yes Status: Chronic (9) HLD (hyperlipidemia) Current Visit: Yes Status: Chronic (10) COPD (chronic obstructive pulmonary disease) Current Visit: Yes Status: Chronic (11) 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 2) Continue inpatient detoxification
[2020-03-22] MEDS ORDERED: METHADONE HCL 10 MG TABLET PO ONE (08:49)
[2020-03-22] MEDS ORDERED: METHADONE 160 MG, METHADONE 10 MG PO ONE (09:00)
[2020-03-22] MEDS ORDERED: METHADONE HCL 10 MG TABLET ONE (09:08)
[2020-03-22] MEDS ORDERED: METHADONE HCL 40 MG DISPERSABLE TABLET ONE (09:09)
--- NOTE | 2020-03-22 09:40 | PN ---
S CIWA - CIWA Score Nausea/Vomitin Muscle Tremors: 2 Anxiety: 2 Agitation: 2 Paroxysmal Sweats: No Perspiration Orientation: 0-Oriented Tacttile Disturbances: 1-Very Mild Itch/Numbness Auditory Disturbances: 0-None Visual Disturbances: 0-None Headache: 2-Mild CIWA-Ar Total Score: 11 S Progress Note (SOAP) Subjective: alert,irritable,anxious,interrupted sleep,tremor,aching pain in the body and back Objective: 03/22/20 09:37 Vital Signs Temperature 97.5 F L 03/22/20 08:55 Pulse Rate 59 L 03/22/20 08:55 Respiratory Rate 16 03/22/20 08:55 Blood Pressure 114/73 03/22/20 08:55 O2 Sat by Pulse Oximetry (%) 97 03/22/20 08:55 labs pending Assessment: 03/22/20 09:37 withdrawal symptom Plan: continue detox librium regimen,continue methadone maintenance 170 mgs /day
[2020-03-22 10:26] LABS: HEMATOCRIT 39.4 % (35.4-49); HEMOGLOBIN 13.2 GM/dL (11.7-16.9); MCH 31.4 pg (25.7-33.7); MCHC 33.4 g/dl (32.0-35.9); MEAN CELL VOLUME 94.1 fl (80-96); MEAN PLT VOLUME 8.1 fl (7.5-11.1); PLATELET COUNT 222 K/MM3 (134-434); RBC 4.19 M/mm3 (4.00-5.60); RDW 13.5 % (11.9-15.9); WHITE BLOOD COUNT 6.2 K/mm3 (4.0-10.0)
[2020-03-22] MEDS: NICOTINE 7 MG/24 HOURS TOPICAL PATCH TD SCH (10:31)
[2020-03-22] MEDS: PRENATAL VITAMINS W/ FOLIC ACID TABLET (FP) PO SCH (10:31)
[2020-03-22 10:41] LABS: ALBUMIN 3.5 g/dl (3.4-5.0); BILIRUBIN,TOTAL 0.4 mg/dL (0.2-1); BLOOD UREA NITROGEN 19.5 mg/dL (7-18); CALCIUM 8.9 mg/dL (8.5-10.1); TOT PROT 6.7 g/dl (6.4-8.2)
[2020-03-22] MEDS: hydrOXYzine PAMOATE 50 MG CAPSULE (FP) PO PRN (20:18)
[2020-03-22] MEDS: SUVOREXANT 10 MG TABLET PO PRN (22:01)
[2020-03-22] MEDS: THIAMINE HCL 100 MG TABLET (FP) PO SCH (22:02)
[2020-03-22] MEDS: MELATONIN 5 MG TABLETS PO SCH (22:02)
[2020-03-23] MEDS ORDERED: METHADONE HCL 40 MG DISPERSABLE TABLET ONE (05:50)
[2020-03-23] MEDS ORDERED: METHADONE HCL 10 MG TABLET ONE (05:50)
[2020-03-23] MEDS: METHADONE 160 MG, METHADONE 10 MG PO SCH (05:51)
[2020-03-23] MEDS: chlordiazePOXIDE HCL 25 MG CAPSULE PO SCH ×4 (05:52→22:22)
[2020-03-23] MEDS ORDERED: METHADONE HCL 10 MG TABLET PO SCH (06:00)
[2020-03-23] MEDS ORDERED: METHADONE HCL 40 MG DISPERSABLE TABLET PO SCH (06:00)
--- NOTE | 2020-03-23 08:20 | PN ---
Teaching Attending Note Name of Resident: Elier Buckner ATTENDING PHYSICIAN STATEMENT I saw and evaluated the patient. I reviewed the resident's note and discussed the case with the resident. I agree with the resident's findings and plan as documented. SUBJECTIVE: OBJECTIVE: ASSESSMENT AND PLAN: Agree with resident's findings and plan for detox.
[2020-03-23] MEDS: PRENATAL VITAMINS W/ FOLIC ACID TABLET (FP) PO SCH (10:07)
[2020-03-23] MEDS: NICOTINE 7 MG/24 HOURS TOPICAL PATCH TD SCH (10:07)
--- NOTE | 2020-03-23 10:38 | PN ---
[facility] CIWA - CIWA Score Nausea/Vomitin-Mild Nausea/No Vomiting Muscle Tremors: 2 Anxiety: 2 Agitation: 2 Paroxysmal Sweats: No Perspiration Orientation: 1-Uncertain about Date Tacttile Disturbances: 0-None Auditory Disturbances: 0-None Visual Disturbances: 0-None Headache: 2-Mild CIWA-Ar Total Score: 10 S Progress Note (SOAP) Subjective: alert,irritable,anxious,interrupted sleep,tremor,aching pain in the body Objective: 03/23/20 10:35 Vital Signs Temperature 97.3 F L 03/23/20 09:09 Pulse Rate 55 L 03/23/20 09:09 Respiratory Rate 19 03/23/20 09:09 Blood Pressure 107/58 L 03/23/20 09:09 O2 Sat by Pulse Oximetry (%) 99 03/23/20 09:09 Laboratory Last Values WBC 6.2 K/mm3 (4.0-10.0) 03/22/20 08:15 RBC 4.19 M/mm3 (4.00-5.60) 03/22/20 08:15 Hgb 13.2 GM/dL (11.7-16.9) 03/22/20 08:15 Hct 39.4 % (35.4-49) 03/22/20 08:15 MCV 94.1 fl (80-96) 03/22/20 08:15 MCH 31.4 pg (25.7-33.7) 03/22/20 08:15 MCHC 33.4 g/dl (32.0-35.9) 03/22/20 08:15 RDW 13.5 % (11.9-15.9) 03/22/20 08:15 Plt Count 222 K/MM3 (134-434) 03/22/20 08:15 MPV 8.1 fl (7.5-11.1) 03/22/20 08:15 Sodium 141 mmol/L (136-145) 03/22/20 08:15 Potassium 4.0 mmol/L (3.5-5.1) 03/22/20 08:15 Chloride 106 mmol/L (98-107) 03/22/20 08:15 Carbon Dioxide 29 mmol/L (21-32) 03/22/20 08:15 Anion Gap 7 MMOL/L (8-16) L 03/22/20 08:15 BUN 19.5 mg/dL (7-18) H 03/22/20 08:15 Creatinine 1.0 mg/dL (0.55-1.3) 03/22/20 08:15 Est GFR (CKD-EPI)AfAm 109.40 03/22/20 08:15 Est GFR (CKD-EPI)NonAf 94.39 03/22/20 08:15 Random Glucose 88 mg/dL (74-106) 03/22/20 08:15 Calcium 8.9 mg/dL (8.5-10.1) 03/22/20 08:15 Total Bilirubin 0.4 mg/dL (0.2-1) 03/22/20 08:15 AST 14 U/L (15-37) L 03/22/20 08:15 ALT 21 U/L (13-61) 03/22/20 08:15 Alkaline Phosphatase 92 U/L (45-117) 03/22/20 08:15 Total Protein 6.7 g/dl (6.4-8.2) 03/22/20 08:15 Albumin 3.5 g/dl (3.4-5.0) 03/22/20 08:15 Syphilis Serology Non-reactive (NONREACTIVE) 03/22/20 08:15 Assessment: 03/23/20 10:39 withdrawal symptom Plan: continue detox librium regimen,encourage fluid,hydration,bun 19.5,continue methadone 170 mgs po daily maintenance
[2020-03-23] MEDS: hydrOXYzine PAMOATE 50 MG CAPSULE (FP) PO PRN ×2 (12:23→22:22)
[2020-03-23] MEDS: METHOCARBAMOL 500 MG TABLET PO PRN ×2 (15:33→22:22)
[2020-03-23] MEDS: MELATONIN 5 MG TABLETS PO SCH (22:22)
[2020-03-23] MEDS: THIAMINE HCL 100 MG TABLET (FP) PO SCH (22:22)
[2020-03-23] MEDS: SUVOREXANT 10 MG TABLET PO PRN (22:23)
[2020-03-24] MEDS ORDERED: chlordiazePOXIDE HCL 10 MG CAPSULE PO PRN
[2020-03-24] MEDS ORDERED: METHADONE HCL 10 MG TABLET ONE (03:48)
[2020-03-24] MEDS ORDERED: METHADONE HCL 40 MG DISPERSABLE TABLET ONE (03:49)
[2020-03-24] MEDS: chlordiazePOXIDE HCL 10 MG CAPSULE PO SCH ×4 (06:17→22:10)
[2020-03-24] MEDS: METHADONE 160 MG, METHADONE 10 MG PO SCH (06:17)
[2020-03-24] MEDS: NICOTINE 7 MG/24 HOURS TOPICAL PATCH TD SCH (10:03)
[2020-03-24] MEDS: PRENATAL VITAMINS W/ FOLIC ACID TABLET (FP) PO SCH (10:03)
[2020-03-24] MEDS: METHOCARBAMOL 500 MG TABLET PO PRN ×2 (10:04→17:14)
--- NOTE | 2020-03-24 10:55 | PN ---
S CIWA - CIWA Score Nausea/Vomitin-No Nausea/No Vomiting Muscle Tremors: 3 Anxiety: 2 Agitation: 2 Paroxysmal Sweats: 2 Orientation: 0-Oriented Tacttile Disturbances: 0-None Auditory Disturbances: 0-None Visual Disturbances: 0-None Headache: 0-None Present CIWA-Ar Total Score: 9 [facility] Progress Note (SOAP) Subjective: sweats anxiety interrupted sleep Objective: 03/24/20 10:53 Vital Signs Temperature 98.1 F 03/24/20 08:35 Pulse Rate 65 03/24/20 08:35 Respiratory Rate 20 03/24/20 08:35 Blood Pressure 101/56 L 03/24/20 08:35 O2 Sat by Pulse Oximetry (%) 97 03/24/20 08:35 Laboratory Tests 03/21/20 03/22/20 03/22/20 16:10 08:15 08:15 WBC 6.2 RBC 4.19 Hgb 13.2 Hct 39.4 MCV 94.1 MCH 31.4 MCHC 33.4 RDW 13.5 Plt Count 222 MPV 8.1 Sodium 141 Potassium 4.0 Chloride 106 Carbon Dioxide 29 Anion Gap 7 L BUN 19.5 H Creatinine 1.0 Est GFR (CKD-EPI)AfAm 109.40 Est GFR (CKD-EPI)NonAf 94.39 Random Glucose 88 Calcium 8.9 Total Bilirubin 0.4 AST 14 L ALT 21 Alkaline Phosphatase 92 Total Protein 6.7 Albumin 3.5 Syphilis Serology COVID-19 ([facility]) Not detected 03/22/20 08:15 WBC RBC Hgb Hct MCV MCH MCHC RDW Plt Count MPV Sodium Potassium Chloride Carbon Dioxide Anion Gap BUN Creatinine Est GFR (CKD-EPI)AfAm Est GFR (CKD-EPI)NonAf Random Glucose Calcium Total Bilirubin AST ALT Alkaline Phosphatase Total Protein Albumin Syphilis Serology Non-reactive COVID-19 ([facility]) labs noted aaox3 ambulating no acute distress Assessment: 03/24/20 10:55 withdrawals Plan: continue detox increase fluids
[2020-03-24] MEDS: hydrOXYzine PAMOATE 50 MG CAPSULE (FP) PO PRN ×3 (12:34→22:10)
--- NOTE | 2020-03-24 14:24 | PN ---
S Progress Note Note: Patient reports sleeping poorly despite taking Belsomra 10 mg/hs prn. Requests that Belsomra dosage be increased to 15 mg/hs prn. So Belsomra dose is increased to 15 mg/hs prn for insomnia
[2020-03-24] MEDS ORDERED: SUVOREXANT 10 MG TABLET PO PRN (22:00)
[2020-03-24] MEDS: SUVOREXANT 10 MG TABLET PO PRN (22:10)
[2020-03-24] MEDS: MELATONIN 5 MG TABLETS PO SCH (22:10)
[2020-03-24] MEDS: THIAMINE HCL 100 MG TABLET (FP) PO SCH (22:10)
[2020-03-25] MEDS ORDERED: METHADONE HCL 10 MG TABLET ONE (04:16)
[2020-03-25] MEDS ORDERED: METHADONE HCL 40 MG DISPERSABLE TABLET ONE (04:17)
[2020-03-25] MEDS: hydrOXYzine PAMOATE 50 MG CAPSULE (FP) PO PRN ×4 (05:45→22:13)
[2020-03-25] MEDS: chlordiazePOXIDE HCL 10 MG CAPSULE PO SCH ×2 (05:45→17:00)
[2020-03-25] MEDS: METHADONE 160 MG, METHADONE 10 MG PO SCH (05:45)
[2020-03-25] MEDS: PRENATAL VITAMINS W/ FOLIC ACID TABLET (FP) PO SCH (10:31)
[2020-03-25] MEDS: METHOCARBAMOL 500 MG TABLET PO PRN ×2 (10:32→17:00)
[2020-03-25] MEDS: NICOTINE 7 MG/24 HOURS TOPICAL PATCH TD SCH (10:33)
--- NOTE | 2020-03-25 10:56 | PN ---
S CIWA - CIWA Score Nausea/Vomitin-No Nausea/No Vomiting Muscle Tremors: None Anxiety: 1-Mildly Anxious Agitation: 1-Slight > Activity Paroxysmal Sweats: No Perspiration Orientation: 0-Oriented Tacttile Disturbances: 1-Very Mild Itch/Numbness Auditory Disturbances: 0-None Visual Disturbances: 1-Very Mild Sensitivity Headache: 1-Very Mild CIWA-Ar Total Score: 5 [facility] Progress Note (SOAP) Subjective: alert,irritable,anxious,interrupted sleep Objective: 03/25/20 10:53 Vital Signs Temperature 98 F 03/25/20 05:36 Pulse Rate 51 L 03/25/20 05:36 Respiratory Rate 16 03/25/20 05:36 Blood Pressure 106/60 03/25/20 05:36 O2 Sat by Pulse Oximetry (%) 96 03/25/20 05:36 03/25/20 10:54 Assessment: 03/25/20 10:55 withdrawal symptom Plan: continue detox librium regimen,mmtp 170 mgs po daily,discharge in am
[2020-03-25] MEDS: THIAMINE HCL 100 MG TABLET (FP) PO SCH (22:08)
[2020-03-25] MEDS: MELATONIN 5 MG TABLETS PO SCH (22:09)
[2020-03-26] MEDS ORDERED: SUVOREXANT 10 MG, SUVOREXANT 5 MG PO PRN (01:36)
[2020-03-26] MEDS ORDERED: SUVOREXANT 15 MG TABLET PO PRN (01:39)
[2020-03-26] MEDS ORDERED: METHADONE HCL 40 MG DISPERSABLE TABLET ONE (04:01)
[2020-03-26] MEDS ORDERED: METHADONE HCL 10 MG TABLET ONE (04:01)
[2020-03-26] MEDS ORDERED: chlordiazePOXIDE HCL 10 MG CAPSULE PO ONE (05:00)
[2020-03-26] MEDS: METHADONE 160 MG, METHADONE 10 MG PO SCH (05:41)
[2020-03-26 09:19] VITALS: BP 111/63; PULSE 68; TEMP 98
--- NOTE | 2020-03-26 09:53 | DS ---
[facility] Detox Discharge Summary Admission Date: 03/21/20 Discharge Date: 03/26/20 - History Present History: Alcohol Dependence, Cannabis Dependence, Cocaine Dependence Additional Comments: Patient was seen and examined at bedside. Alert and oriented x 3, in no acute respiratory distress. Full ROM, ambulatory in the unit without any assistance. Skin warm to touch without any lesions. Detox protocol completed, patient stable for discharge. Pertinent Past History: History of alcohol , Xanax and cocaine use disorder. - Physical Exam Results Vital Signs: Vital Signs Temperature 98.0 F 03/26/20 08:45 Pulse Rate 68 03/26/20 08:45 Respiratory Rate 18 03/26/20 08:45 Blood Pressure 111/63 03/26/20 08:45 O2 Sat by Pulse Oximetry (%) 99 03/26/20 08:45 Vital Signs 03/26/20 03/26/20 05:29 08:45 Temperature 96.8 F L 98.0 F Pulse Rate 48 L 68 Respiratory 16 18 Rate Blood Pressure 121/70 111/63 O2 Sat by Pulse 99 99 Oximetry (%) Laboratory Last Values WBC 6.2 K/mm3 (4.0-10.0) 03/22/20 08:15 RBC 4.19 M/mm3 (4.00-5.60) 03/22/20 08:15 Hgb 13.2 GM/dL (11.7-16.9) 03/22/20 08:15 Hct 39.4 % (35.4-49) 03/22/20 08:15 MCV 94.1 fl (80-96) 03/22/20 08:15 MCH 31.4 pg (25.7-33.7) 03/22/20 08:15 MCHC 33.4 g/dl (32.0-35.9) 03/22/20 08:15 RDW 13.5 % (11.9-15.9) 03/22/20 08:15 Plt Count 222 K/MM3 (134-434) 03/22/20 08:15 MPV 8.1 fl (7.5-11.1) 03/22/20 08:15 Sodium 141 mmol/L (136-145) 03/22/20 08:15 Potassium 4.0 mmol/L (3.5-5.1) 03/22/20 08:15 Chloride 106 mmol/L (98-107) 03/22/20 08:15 Carbon Dioxide 29 mmol/L (21-32) 03/22/20 08:15 Anion Gap 7 MMOL/L (8-16) L 03/22/20 08:15 BUN 19.5 mg/dL (7-18) H 03/22/20 08:15 Creatinine 1.0 mg/dL (0.55-1.3) 03/22/20 08:15 Est GFR (CKD-EPI)AfAm 109.40 03/22/20 08:15 Est GFR (CKD-EPI)NonAf 94.39 03/22/20 08:15 Random Glucose 88 mg/dL (74-106) 03/22/20 08:15 Calcium 8.9 mg/dL (8.5-10.1) 03/22/20 08:15 Total Bilirubin 0.4 mg/dL (0.2-1) 03/22/20 08:15 AST 14 U/L (15-37) L 03/22/20 08:15 ALT 21 U/L (13-61) 03/22/20 08:15 Alkaline Phosphatase 92 U/L (45-117) 03/22/20 08:15 Total Protein 6.7 g/dl (6.4-8.2) 03/22/20 08:15 Albumin 3.5 g/dl (3.4-5.0) 03/22/20 08:15 Syphilis Serology Non-reactive (NONREACTIVE) 03/22/20 08:15 COVID-19 (PRESTON) Not detected (Not Detected) 03/21/20 16:10 labs noted. Pertinent Admission Physical Exam Findings: Withdrawal symptoms. - Treatment Hospital Course: Detox Protocol Followed, Detoxed Safely, Responded well, Discharged Condition Good - Medication Discharge Medications: Ambulatory Orders Methadone [Dolophine -] 170 mg PO DAILY 09/18/19 Cyclobenzaprine HCl [Flexeril -] 20 mg PO PRN PRN 03/21/20 - Diagnosis (1) Alcohol dependence Current Visit: Yes Status: Acute (2) Sedative, hypnotic or anxiolytic dependence with intoxication, uncomplicated Current Visit: Yes Status: Chronic (3) Cocaine abuse Current Visit: No Status: Acute (4) Opioid dependence on agonist therapy Current Visit: No Status: Chronic - AMA Did Patient Leave Against Medical Advice: No
[2020-03-26] MEDS: PRENATAL VITAMINS W/ FOLIC ACID TABLET (FP) PO SCH (10:31)
[2020-03-26] MEDS: NICOTINE 7 MG/24 HOURS TOPICAL PATCH TD SCH (10:31)
[2020-03-26] MEDS: METHOCARBAMOL 500 MG TABLET PO PRN (10:32)
[2020-03-26] MEDS: hydrOXYzine PAMOATE 50 MG CAPSULE (FP) PO PRN (10:32)
== END 2020-03-26 13:15 | disposition other institution (70) | DRG 773 ==
LOC: YASAS 14:14 → Y6N 15:44
PROVIDERS: ADMIT Allergy & Immunology; ATTEND Allergy & Immunology
PROC: HZ2ZZZZ Detoxification Services for Substance Abuse Treatment (ICD-10-PCS; principal; 2020-03-21)
DX: F10.230 Alcohol dependence with withdrawal, uncomplicated (principal); F13.230 Sedative, hypnotic or anxiolytic dependence with withdrawal, uncomplicated; F11.20 Opioid dependence, uncomplicated; F14.20 Cocaine dependence, uncomplicated; F16.20 Hallucinogen dependence, uncomplicated; F12.20 Cannabis dependence, uncomplicated; F19.280 Other psychoactive substance dependence with psychoactive substance-induced anxiety disorder; F19.282 Other psychoactive substance dependence with psychoactive substance-induced sleep disorder; F32.9 Major depressive disorder, single episode, unspecified; F41.9 Anxiety disorder, unspecified; F90.9 Attention-deficit hyperactivity disorder, unspecified type; B15.9 Hepatitis A without hepatic coma; B19.10 Unspecified viral hepatitis B without hepatic coma; B19.20 Unspecified viral hepatitis C without hepatic coma; I10 Essential (primary) hypertension; J44.9 Chronic obstructive pulmonary disease, unspecified; E78.5 Hyperlipidemia, unspecified; Z87.438 Personal history of other diseases of male genital organs; Z86.69 Personal history of other diseases of the nervous system and sense organs; Z86.19 Personal history of other infectious and parasitic diseases
CPT/HCPCS: 36415; 80053; 85027; 86780; U0003

== ENCOUNTER 2020-03-26 13:26 | Inpatient (IN) | payer OTHER ==
[2020-03-26] MEDS ORDERED: MAGNESIUM HYDROX 2400MG/30ML ORAL SUSPENSION 30 ML CUP PO PRN (15:04)
[2020-03-26] MEDS ORDERED: IBUPROFEN 400 MG TABLET (FP) PO PRN (15:04)
[2020-03-26] MEDS ORDERED: ACETAMINOPHEN 325 MG TABLET (FP) PO PRN (15:04)
[2020-03-26] MEDS ORDERED: MAG HYDROX/AL HYDROX/SIMETH 30 ML UNIT-DOSE CUP PO PRN (15:04)
[2020-03-26] MEDS ORDERED: NICOTINE POLACRILEX 2 MG GUM BUC PRN (15:04)
[2020-03-26] MEDS ORDERED: LOPERAMIDE HCL 2 MG CAPSULE PO PRN (15:04)
[2020-03-26] MEDS ORDERED: MAGNESIUM CITRATE 300 ML BOTTLE PO PRN (15:04)
[2020-03-26] MEDS ORDERED: guaiFENesin 200 MG/10 ML 10 ML UNIT-DOSE CUPS PO PRN (15:04)
[2020-03-26] MEDS ORDERED: P-EPHED 60MG/TRIPROLIDI 2.5MG TABLET PO PRN (15:04)
[2020-03-26] MEDS ORDERED: MENTHOL/PHENOL 1 EACH UD MM PRN (15:04)
[2020-03-26] MEDS: CYCLOBENZAPRINE HCL 10 MG TABLET (FP) PO PRN (16:34)
[2020-03-26] MEDS: hydrOXYzine PAMOATE 25 MG CAPSULE (FP) PO SCH ×2 (17:19→21:28)
[2020-03-26] MEDS: MELATONIN 5 MG TABLETS PO SCH (21:28)
[2020-03-26] MEDS: THIAMINE HCL 100 MG TABLET (FP) PO SCH (21:29)
[2020-03-27] MEDS ORDERED: METHADONE HCL 40 MG DISPERSABLE TABLET ONE (05:39)
[2020-03-27] MEDS ORDERED: METHADONE HCL 10 MG TABLET ONE (05:39)
[2020-03-27] MEDS: METHADONE 160 MG, METHADONE 10 MG PO SCH (06:00)
[2020-03-27] MEDS: hydrOXYzine PAMOATE 25 MG CAPSULE (FP) PO SCH ×5 (06:02→21:23)
[2020-03-27] MEDS ORDERED: SUVOREXANT 10 MG TABLET PO PRN (09:03)
[2020-03-27] MEDS: PRENATAL VITAMINS W/ FOLIC ACID TABLET (FP) PO SCH (09:26)
[2020-03-27] MEDS: NICOTINE 7 MG/24 HOURS TOPICAL PATCH TD SCH (09:26)
[2020-03-27] MEDS ORDERED: METHADONE HCL 40 MG DISPERSABLE TABLET PO SCH (10:00)
[2020-03-27] MEDS: CYCLOBENZAPRINE HCL 10 MG TABLET (FP) PO PRN ×2 (13:11→21:47)
[2020-03-27] MEDS: MELATONIN 5 MG TABLETS PO SCH (21:23)
[2020-03-27] MEDS: THIAMINE HCL 100 MG TABLET (FP) PO SCH (21:24)
[2020-03-28] MEDS ORDERED: METHADONE HCL 40 MG DISPERSABLE TABLET ONE (03:21)
[2020-03-28] MEDS ORDERED: METHADONE HCL 10 MG TABLET ONE (03:21)
[2020-03-28] MEDS: hydrOXYzine PAMOATE 25 MG CAPSULE (FP) PO SCH ×3 (06:11→13:16)
[2020-03-28] MEDS: METHADONE 160 MG, METHADONE 10 MG PO SCH (06:11)
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
[2020-03-28] MEDS: NICOTINE 7 MG/24 HOURS TOPICAL PATCH TD SCH (09:57)
[2020-03-28] MEDS: CYCLOBENZAPRINE HCL 10 MG TABLET (FP) PO PRN (09:57)
[2020-03-28] MEDS: PRENATAL VITAMINS W/ FOLIC ACID TABLET (FP) PO SCH (09:57)
--- NOTE | 2020-03-28 14:10 | CONSULT ---
[facility] Psychiatric Consult - Data Date of interview: 03/28/20 Admission source: 6N Identifying data: Mr Quintanilla is a 39 years old single male, unemployed, domiciled seeking detox treatment for alcohol, cocaine, benzodiazepine and MDMA Substance Abuse History: Reports history of alcohol, cocaine, xanax and ecstasy use. Refer to addiction counselor's summary for further information Medical History: Significant for COPD, hypertension, dyslipidemia, history of sedative withdrawal seizure and treatment for gonorrhea, genital herpes, syphilis and chlamydia. Patient is on methadone 170 mg/day from [facility]. Psychiatric History: Patient is known for previous admissions to this facility and he was recently seen by chief underwriter on 03/22/20 while in detox. He reports that his first psychiatric contact occured approximalely around January-Feb 2019 when he was diagnosed with ADHD, MDD, Anxiety by a psychiatrist located near his methadone program in the [place]. He said that he was started on Adderall and Seroquel which he took for only 2 months due to conflict with the provider. Told chief underwriter that due to Coronavirus Pandemic, it was difficult to find another provider. During his recent admission to this facility, he saw wtirer on 03/22/20 and he was prescribed Belsomra 15 mg/hs prn and Vistaril 50 mg/ q 6hrs prn. Denies previous psychiatric hospitalization or suicidal attemt. At present, reports feeling very anxious and sleeping poorly. Requests in addition to Vistaril to be ordered Gabapentin to which he responded well in the past for anxiety Physical/Sexual Abuse/Trauma History: Denies history of abuse as a child or DV relationship as an adult Mental Status Exam - Mental Status Exam Alert and Oriented to: Time, Place, Person Cognitive Function: Fair Patient Appearance: Well Groomed Mood: Anxious (very) Affect: Appropriate Patient Behavior: Cooperative Speech Pattern: Clear Voice Loudness: Normal Thought Process: Intact Hallucinations: Denies Suicidal Ideation: Denies Homicidal Ideation: Denies Insight/Judgement: Fair Sleep: Poorly Appetite: Fair Muscle strength/Tone: Normal Gait/Station: Normal Psychiatric Findings - Problem List ([place] 1, 2,3) (1) ADHD (attention deficit hyperactivity disorder) Current Visit: No Status: Chronic (2) Substance-induced anxiety disorder Current Visit: No Status: Acute (3) Substance-induced sleep disorder Current Visit: No Status: Acute (4) Sedative hypnotic or anxiolytic dependence Current Visit: Yes Status: Acute (5) Cocaine abuse Current Visit: No Status: Acute (6) Opioid dependence on agonist therapy Current Visit: No Status: Chronic (7) COPD (chronic obstructive pulmonary disease) Current Visit: No Status: Chronic (8) HLD (hyperlipidemia) Current Visit: No Status: Chronic (9) HTN (hypertension) Current Visit: No Status: Chronic (10) Seizure concurrent with and due to anxiolytic withdrawal Current Visit: No Status: Resolved - Initial Treatment Plan Initial Treatment Plan: 1) Continue Belsomra 15 mg po HS prn for insomnia and Vistaril 50 mg po Q 4hrs prn for anxiety. 2) Start Gabapentin 300 mg po TID. 3) Contibue inpatient rehabilitation
[2020-03-28] MEDS: GABAPENTIN 300 MG CAPSULE PO SCH ×2 (14:41→21:13)
[2020-03-28] MEDS: hydrOXYzine PAMOATE 50 MG CAPSULE (FP) PO PRN ×2 (14:41→21:13)
[2020-03-28] MEDS: SUVOREXANT 15 MG TABLET PO PRN (21:12)
[2020-03-28] MEDS: THIAMINE HCL 100 MG TABLET (FP) PO SCH (21:13)
[2020-03-28] MEDS: MELATONIN 5 MG TABLETS PO SCH (21:13)
[2020-03-29] MEDS ORDERED: METHADONE HCL 40 MG DISPERSABLE TABLET ONE (04:00)
[2020-03-29] MEDS ORDERED: METHADONE HCL 10 MG TABLET ONE (04:00)
[2020-03-29] MEDS: GABAPENTIN 300 MG CAPSULE PO SCH ×3 (06:19→21:23)
[2020-03-29] MEDS: METHADONE 160 MG, METHADONE 10 MG PO SCH (06:21)
[2020-03-29] MEDS: NICOTINE 7 MG/24 HOURS TOPICAL PATCH TD SCH (09:18)
[2020-03-29] MEDS: PRENATAL VITAMINS W/ FOLIC ACID TABLET (FP) PO SCH (09:18)
[2020-03-29] MEDS: hydrOXYzine PAMOATE 50 MG CAPSULE (FP) PO PRN ×2 (09:19→21:23)
[2020-03-29] MEDS: CYCLOBENZAPRINE HCL 10 MG TABLET (FP) PO PRN (13:46)
[2020-03-29] MEDS: MELATONIN 5 MG TABLETS PO SCH (21:23)
[2020-03-29] MEDS: THIAMINE HCL 100 MG TABLET (FP) PO SCH (21:23)
[2020-03-29] MEDS: SUVOREXANT 15 MG TABLET PO PRN (21:23)
[2020-03-30] MEDS ORDERED: METHADONE HCL 10 MG TABLET ONE (02:29)
[2020-03-30] MEDS ORDERED: METHADONE HCL 40 MG DISPERSABLE TABLET ONE (02:30)
[2020-03-30] MEDS: METHADONE 160 MG, METHADONE 10 MG PO SCH (06:11)
[2020-03-30] MEDS: GABAPENTIN 300 MG CAPSULE PO SCH ×3 (06:11→21:22)
[2020-03-30] MEDS: PRENATAL VITAMINS W/ FOLIC ACID TABLET (FP) PO SCH (10:31)
[2020-03-30] MEDS: NICOTINE 7 MG/24 HOURS TOPICAL PATCH TD SCH (10:32)
[2020-03-30] MEDS: hydrOXYzine PAMOATE 50 MG CAPSULE (FP) PO PRN ×3 (10:32→21:22)
[2020-03-30] MEDS ORDERED: COLLOIDAL OATMEAL 1 BAR EACH TP PRN (15:54)
[2020-03-30] MEDS: SUVOREXANT 15 MG TABLET PO PRN (21:22)
[2020-03-30] MEDS: MELATONIN 5 MG TABLETS PO SCH (21:22)
[2020-03-30] MEDS: THIAMINE HCL 100 MG TABLET (FP) PO SCH (21:22)
[2020-03-31] MEDS ORDERED: METHADONE HCL 10 MG TABLET ONE (03:56)
[2020-03-31] MEDS ORDERED: METHADONE HCL 40 MG DISPERSABLE TABLET ONE (03:57)
[2020-03-31] MEDS: METHADONE 160 MG, METHADONE 10 MG PO SCH (06:31)
[2020-03-31] MEDS: GABAPENTIN 300 MG CAPSULE PO SCH ×3 (06:31→21:25)
[2020-03-31] MEDS: hydrOXYzine PAMOATE 50 MG CAPSULE (FP) PO PRN ×3 (10:10→21:28)
[2020-03-31] MEDS: PRENATAL VITAMINS W/ FOLIC ACID TABLET (FP) PO SCH (10:10)
[2020-03-31] MEDS: NICOTINE 7 MG/24 HOURS TOPICAL PATCH TD SCH (10:11)
--- NOTE | 2020-03-31 16:11 | PN ---
[facility] Progress Note Note: Psychiatric nurse practitioner note: Belsomra 15mg HS PRN renewed X3 days. Verbal consent given.
[2020-03-31] MEDS: MELATONIN 5 MG TABLETS PO SCH (21:24)
[2020-03-31] MEDS: CYCLOBENZAPRINE HCL 10 MG TABLET (FP) PO PRN (21:25)
[2020-03-31] MEDS: THIAMINE HCL 100 MG TABLET (FP) PO SCH (21:25)
[2020-03-31] MEDS: SUVOREXANT 15 MG TABLET PO PRN (21:27)
[2020-04-01] MEDS ORDERED: METHADONE HCL 40 MG DISPERSABLE TABLET ONE (05:50)
[2020-04-01] MEDS ORDERED: METHADONE HCL 10 MG TABLET ONE (05:50)
[2020-04-01] MEDS: METHADONE 160 MG, METHADONE 10 MG PO SCH (06:38)
[2020-04-01] MEDS: GABAPENTIN 300 MG CAPSULE PO SCH ×3 (06:38→22:00)
[2020-04-01] MEDS: NICOTINE 7 MG/24 HOURS TOPICAL PATCH TD SCH (10:25)
[2020-04-01] MEDS: PRENATAL VITAMINS W/ FOLIC ACID TABLET (FP) PO SCH (10:25)
[2020-04-01] MEDS: hydrOXYzine PAMOATE 50 MG CAPSULE (FP) PO PRN ×3 (10:25→22:00)
[2020-04-01] MEDS: CYCLOBENZAPRINE HCL 10 MG TABLET (FP) PO PRN ×2 (10:25→22:00)
[2020-04-01] MEDS: MELATONIN 5 MG TABLETS PO SCH (22:00)
[2020-04-01] MEDS: THIAMINE HCL 100 MG TABLET (FP) PO SCH (22:00)
[2020-04-01] MEDS: SUVOREXANT 15 MG TABLET PO PRN (22:00)
[2020-04-02] MEDS ORDERED: METHADONE HCL 10 MG TABLET ONE (03:22)
[2020-04-02] MEDS ORDERED: METHADONE HCL 40 MG DISPERSABLE TABLET ONE (03:22)
[2020-04-02] MEDS: METHADONE 160 MG, METHADONE 10 MG PO SCH (05:56)
[2020-04-02] MEDS: GABAPENTIN 300 MG CAPSULE PO SCH ×3 (06:07→21:20)
[2020-04-02] MEDS: hydrOXYzine PAMOATE 50 MG CAPSULE (FP) PO PRN ×2 (10:01→21:20)
[2020-04-02] MEDS: PRENATAL VITAMINS W/ FOLIC ACID TABLET (FP) PO SCH (10:01)
[2020-04-02] MEDS: CYCLOBENZAPRINE HCL 10 MG TABLET (FP) PO PRN ×2 (10:02→17:52)
[2020-04-02] MEDS: NICOTINE 7 MG/24 HOURS TOPICAL PATCH TD SCH (10:02)
[2020-04-02] MEDS: SUVOREXANT 15 MG TABLET PO PRN (21:20)
[2020-04-02] MEDS: THIAMINE HCL 100 MG TABLET (FP) PO SCH (21:21)
[2020-04-02] MEDS: MELATONIN 5 MG TABLETS PO SCH (21:21)
[2020-04-03] MEDS ORDERED: METHADONE HCL 40 MG DISPERSABLE TABLET ONE (03:18)
[2020-04-03] MEDS ORDERED: METHADONE HCL 10 MG TABLET ONE (03:18)
[2020-04-03] MEDS: METHADONE 160 MG, METHADONE 10 MG PO SCH (05:57)
[2020-04-03] MEDS: GABAPENTIN 300 MG CAPSULE PO SCH ×3 (06:14→21:23)
[2020-04-03] MEDS: hydrOXYzine PAMOATE 50 MG CAPSULE (FP) PO PRN ×2 (10:15→21:24)
[2020-04-03] MEDS: CYCLOBENZAPRINE HCL 10 MG TABLET (FP) PO PRN ×2 (10:16→21:24)
[2020-04-03] MEDS: PRENATAL VITAMINS W/ FOLIC ACID TABLET (FP) PO SCH (10:16)
[2020-04-03] MEDS: NICOTINE 7 MG/24 HOURS TOPICAL PATCH TD SCH (10:16)
--- NOTE | 2020-04-03 11:22 | PN ---
[facility] Progress Note Note: Psychiatric nurse practitioner note: Belsomra 15mg HS PRN renewed X3 days. Verbal consent given.
[2020-04-03] MEDS: THIAMINE HCL 100 MG TABLET (FP) PO SCH (21:24)
[2020-04-03] MEDS: MELATONIN 5 MG TABLETS PO SCH (21:24)
[2020-04-04] MEDS ORDERED: METHADONE HCL 10 MG TABLET ONE (05:08)
[2020-04-04] MEDS ORDERED: METHADONE HCL 40 MG DISPERSABLE TABLET ONE (05:10)
[2020-04-04] MEDS: METHADONE 160 MG, METHADONE 10 MG PO SCH (06:21)
[2020-04-04] MEDS: GABAPENTIN 300 MG CAPSULE PO SCH ×3 (06:23→21:36)
[2020-04-04] MEDS: PRENATAL VITAMINS W/ FOLIC ACID TABLET (FP) PO SCH (10:44)
[2020-04-04] MEDS: NICOTINE 7 MG/24 HOURS TOPICAL PATCH TD SCH (10:45)
[2020-04-04] MEDS: CYCLOBENZAPRINE HCL 10 MG TABLET (FP) PO PRN ×2 (10:45→21:36)
[2020-04-04] MEDS: hydrOXYzine PAMOATE 50 MG CAPSULE (FP) PO PRN ×2 (10:45→21:36)
--- NOTE | 2020-04-04 12:21 | PN ---
[facility] Progress Note Note: Pt c/o rash on face and head Vital Signs - 24 hr 04/03/20 04/04/20 20:07 07:27 Temperature 97.3 F L Pulse Rate 82 Respiratory 18 Rate Blood Pressure 118/76 O2 Sat by Pulse 95 95 Oximetry (%) Alert o x 3 nad oob ambulating with steady gait Head:Normocephalic, atruamatic; red papula and scaly rash around hairline and ears. Seborrheic Dermatitis Selsun lotion 2.5% apply as directed.
[2020-04-04] MEDS: SELENIUM SULFIDE 2.5% LOTION 4 OZ. TP SCH (15:02)
[2020-04-04] MEDS: HYDROCORTISONE 1% TOPICAL CREAM 30 GM TUBE TP SCH ×2 (15:02→21:38)
[2020-04-04] MEDS: SUVOREXANT 15 MG TABLET PO PRN (21:35)
[2020-04-04] MEDS: THIAMINE HCL 100 MG TABLET (FP) PO SCH (21:36)
[2020-04-04] MEDS: MELATONIN 5 MG TABLETS PO SCH (21:36)
[2020-04-05] MEDS ORDERED: METHADONE HCL 10 MG TABLET ONE (03:24)
[2020-04-05] MEDS ORDERED: METHADONE HCL 40 MG DISPERSABLE TABLET ONE (03:24)
[2020-04-05] MEDS: METHADONE 160 MG, METHADONE 10 MG PO SCH (06:13)
[2020-04-05] MEDS: GABAPENTIN 300 MG CAPSULE PO SCH ×3 (06:13→21:28)
[2020-04-05] MEDS: CYCLOBENZAPRINE HCL 10 MG TABLET (FP) PO PRN ×2 (10:25→21:28)
[2020-04-05] MEDS: PRENATAL VITAMINS W/ FOLIC ACID TABLET (FP) PO SCH (10:26)
[2020-04-05] MEDS: NICOTINE 7 MG/24 HOURS TOPICAL PATCH TD SCH (10:26)
[2020-04-05] MEDS: SELENIUM SULFIDE 2.5% LOTION 4 OZ. TP SCH (10:26)
[2020-04-05] MEDS: HYDROCORTISONE 1% TOPICAL CREAM 30 GM TUBE TP SCH ×2 (10:26→21:28)
[2020-04-05] MEDS: hydrOXYzine PAMOATE 50 MG CAPSULE (FP) PO PRN ×2 (14:33→21:27)
[2020-04-05] MEDS: SUVOREXANT 15 MG TABLET PO PRN (21:27)
[2020-04-05] MEDS: MELATONIN 5 MG TABLETS PO SCH (21:28)
[2020-04-05] MEDS: THIAMINE HCL 100 MG TABLET (FP) PO SCH (21:28)
[2020-04-06] MEDS ORDERED: METHADONE HCL 40 MG DISPERSABLE TABLET ONE (06:09)
[2020-04-06] MEDS ORDERED: METHADONE HCL 10 MG TABLET ONE (06:09)
[2020-04-06] MEDS: GABAPENTIN 300 MG CAPSULE PO SCH ×3 (06:10→21:36)
[2020-04-06] MEDS: METHADONE 160 MG, METHADONE 10 MG PO SCH (06:10)
[2020-04-06] MEDS: hydrOXYzine PAMOATE 50 MG CAPSULE (FP) PO PRN ×2 (10:46→17:46)
[2020-04-06] MEDS: NICOTINE 7 MG/24 HOURS TOPICAL PATCH TD SCH (10:46)
[2020-04-06] MEDS: SELENIUM SULFIDE 2.5% LOTION 4 OZ. TP SCH (10:46)
[2020-04-06] MEDS: HYDROCORTISONE 1% TOPICAL CREAM 30 GM TUBE TP SCH ×2 (10:46→21:36)
[2020-04-06] MEDS: PRENATAL VITAMINS W/ FOLIC ACID TABLET (FP) PO SCH (10:46)
[2020-04-06] MEDS: CYCLOBENZAPRINE HCL 10 MG TABLET (FP) PO PRN (17:46)
[2020-04-06] MEDS: MELATONIN 5 MG TABLETS PO SCH (21:36)
[2020-04-06] MEDS: THIAMINE HCL 100 MG TABLET (FP) PO SCH (21:36)
[2020-04-06] MEDS: SUVOREXANT 15 MG TABLET PO PRN (21:36)
[2020-04-07] MEDS ORDERED: METHADONE HCL 40 MG DISPERSABLE TABLET ONE (03:23)
[2020-04-07] MEDS ORDERED: METHADONE HCL 10 MG TABLET ONE (03:23)
[2020-04-07] MEDS: GABAPENTIN 300 MG CAPSULE PO SCH ×3 (06:08→21:41)
[2020-04-07] MEDS: METHADONE 160 MG, METHADONE 10 MG PO SCH (06:09)
[2020-04-07] MEDS: PRENATAL VITAMINS W/ FOLIC ACID TABLET (FP) PO SCH (09:22)
[2020-04-07] MEDS: hydrOXYzine PAMOATE 50 MG CAPSULE (FP) PO PRN ×2 (09:22→21:40)
[2020-04-07] MEDS: SELENIUM SULFIDE 2.5% LOTION 4 OZ. TP SCH (09:23)
[2020-04-07] MEDS: HYDROCORTISONE 1% TOPICAL CREAM 30 GM TUBE TP SCH ×2 (09:23→21:41)
[2020-04-07] MEDS: CYCLOBENZAPRINE HCL 10 MG TABLET (FP) PO PRN ×2 (09:23→21:40)
[2020-04-07] MEDS: NICOTINE 7 MG/24 HOURS TOPICAL PATCH TD SCH (09:23)
--- NOTE | 2020-04-07 18:08 | PN ---
[facility] Progress Note Note: Psychiatric nurse practitioner note: Patient scheduled for discharge tomorrow. A 30 day prescription of gabapentin 300mg TID was electronically sent to [address] [place] [address].
[2020-04-07] MEDS: THIAMINE HCL 100 MG TABLET (FP) PO SCH (21:40)
[2020-04-07] MEDS: MELATONIN 5 MG TABLETS PO SCH (21:41)
[2020-04-07] MEDS ORDERED: SUVOREXANT 15 MG TABLET PO PRN (22:00)
[2020-04-08] MEDS ORDERED: METHADONE HCL 10 MG TABLET ONE (03:19)
[2020-04-08] MEDS ORDERED: METHADONE HCL 40 MG DISPERSABLE TABLET ONE (03:20)
[2020-04-08] MEDS: METHADONE 160 MG, METHADONE 10 MG PO SCH (05:59)
[2020-04-08] MEDS: GABAPENTIN 300 MG CAPSULE PO SCH (05:59)
[2020-04-08 06:00] VITALS: BP 133/92; PULSE 77; TEMP 97.3
[2020-04-08] MEDS: PRENATAL VITAMINS W/ FOLIC ACID TABLET (FP) PO SCH (09:18)
[2020-04-08] MEDS: HYDROCORTISONE 1% TOPICAL CREAM 30 GM TUBE TP SCH (09:18)
[2020-04-08] MEDS: NICOTINE 7 MG/24 HOURS TOPICAL PATCH TD SCH (09:18)
[2020-04-08] MEDS: SELENIUM SULFIDE 2.5% LOTION 4 OZ. TP SCH (09:18)
--- NOTE | 2020-04-08 14:34 | DS ---
[facility] Rehab Discharge Summary - [facility] Rehab Discharge Summary Admission Date: 03/26/20 Discharge Date: 04/08/20 - History Present History: Alcohol dependence, Cocaine dependence, MMTP, Sedative dependence Pertinent Past History: HTN(no meds) HLD(no meds) COPD(no med) Seizure R/t Benzo use Hep C ADHD - Discharge Physical Exam Vital Signs: Vital Signs Temperature 97.3 F L 04/08/20 05:54 Pulse Rate 77 04/08/20 05:54 Respiratory Rate 18 04/08/20 05:54 Blood Pressure 133/92 04/08/20 05:54 O2 Sat by Pulse Oximetry (%) 96 04/08/20 05:54 General:Alert o x 3,WDWN male, in nad Neck:supple, no JVD cardiac:s1 s2, rrr lungs:ctab abdomen:soft, +bs,nt,nd MSK:Active FROM,all limbs;no edema Skin:warm,dry and intact Pertinent Admission Physical Exam Findings: s/p detox - Treatment Discharge Condition: Discharge condition good, Rehabilitated safely, Responded well, Outpatient referral accepted Hospital Course: CD aftercare referral to [facility] CD program - Medication Discharge Medications: Ambulatory Orders Methadone [Dolophine -] 170 mg PO DAILY 09/18/19 Cyclobenzaprine HCl [Flexeril -] 10 mg PO PRN PRN 03/21/20 Gabapentin [Neurontin -] 300 mg PO TID #90 capsule 04/07/20 - Medication-Assisted Treatment (MAT) Medication-Assisted Treatment (MAT): No - Discharge Instructions Diet, activity, other medical instructions: Diet:Regular Activity: oob ad chapis Other medical instructions:follow up with CD aftercare @[facility] Follow up with PCP @ [facility] as needed. - Diagnosis (1) Cocaine use disorder Status: Chronic (2) Alcohol dependence Status: Chronic Qualifiers: Substance use status: uncomplicated Qualified Code(s): F10.20 - Alcohol dependence, uncomplicated (3) Sedative hypnotic or anxiolytic dependence Status: Chronic (4) COPD (chronic obstructive pulmonary disease) Status: Chronic Qualifiers: Emphysema type: unspecified (5) HLD (hyperlipidemia) Status: Chronic Qualifiers: Hyperlipidemia type: unspecified Qualified Code(s): E78.5 - Hyperlipidemia, unspecified (6) HTN (hypertension) Status: Chronic Qualifiers: Hypertension type: unspecified Qualified Code(s): I10 - Essential (primary) hypertension (7) Hepatitis C Status: Chronic - Follow-up Referral Minutes to complete discharge: 25 - AMA Did Patient Leave Against Medical Advice: No
== END 2020-04-08 09:20 | disposition home or self-care (01) | DRG 772 ==
LOC: YASAS 13:26 → Y5N 13:27
PROVIDERS: ADMIT Allergy & Immunology; ATTEND Allergy & Immunology
PROC: HZ42ZZZ Group Counseling for Substance Abuse Treatment, Cognitive-Behavioral (ICD-10-PCS; principal; 2020-03-26)
DX: F10.20 Alcohol dependence, uncomplicated (principal); F13.20 Sedative, hypnotic or anxiolytic dependence, uncomplicated; F11.20 Opioid dependence, uncomplicated; F14.10 Cocaine abuse, uncomplicated; F15.10 Other stimulant abuse, uncomplicated; F19.282 Other psychoactive substance dependence with psychoactive substance-induced sleep disorder; F19.280 Other psychoactive substance dependence with psychoactive substance-induced anxiety disorder; F90.9 Attention-deficit hyperactivity disorder, unspecified type; F41.9 Anxiety disorder, unspecified; F31.9 Bipolar disorder, unspecified; I10 Essential (primary) hypertension; J44.9 Chronic obstructive pulmonary disease, unspecified; E78.5 Hyperlipidemia, unspecified; B18.2 Chronic viral hepatitis C; L21.8 Other seborrheic dermatitis; Z86.69 Personal history of other diseases of the nervous system and sense organs; Z86.19 Personal history of other infectious and parasitic diseases

== ENCOUNTER 2020-12-07 09:17 | Inpatient (IN) | payer OTHER ==
[2020-12-07 10:15] VITALS: BMI 25.7
[2020-12-07] MEDS ORDERED: MENTHOL/PHENOL 1 EACH UD MM PRN (12:29)
[2020-12-07] MEDS ORDERED: MAGNESIUM CITRATE 300 ML BOTTLE PO PRN (12:29)
[2020-12-07] MEDS ORDERED: BISMUTH SUBSALICYLATE 524 MG/30 ML PO PRN (12:29)
[2020-12-07] MEDS ORDERED: MAGNESIUM HYDROX 2400MG/30ML ORAL SUSPENSION 30 ML CUP PO PRN (12:29)
[2020-12-07] MEDS ORDERED: IBUPROFEN 400 MG TABLET (FP) PO PRN (12:29)
[2020-12-07] MEDS ORDERED: MAG HYDROX/AL HYDROX/SIMETH 30 ML UNIT-DOSE CUP PO PRN (12:29)
[2020-12-07] MEDS ORDERED: ONDANSETRON *ODT* 4 MG TABLET SL PRN (12:29)
[2020-12-07] MEDS ORDERED: ACETAMINOPHEN 325 MG TABLET (FP) PO PRN ×2 (12:29)
[2020-12-07] MEDS: diazePAM 5 MG TABLET PO PRN (13:46)
[2020-12-07] MEDS ORDERED: hydrOXYzine PAMOATE 25 MG CAPSULE (FP) PO SCH (14:00)
[2020-12-07] MEDS: diazePAM 5 MG TABLET PO SCH ×2 (17:51→22:20)
[2020-12-07] MEDS: hydrOXYzine PAMOATE 50 MG CAPSULE (FP) PO PRN (17:51)
[2020-12-07 19:46] LABS: HEMATOCRIT 40.5 % (35.4-49); HEMOGLOBIN 13.3 GM/dL (11.7-16.9); MCH 30.8 pg (25.7-33.7); MCHC 32.8 g/dl (32.0-35.9); PLATELET COUNT 298 K/MM3 (134-434); RDW 13.4 % (11.9-15.9); WHITE BLOOD COUNT 10.8 K/mm3 (4.0-10.0)
[2020-12-07 19:48] LABS: BILIRUBIN,TOTAL 0.2 mg/dL (0.2-1); TOT PROT 7.3 g/dl (6.4-8.2)
[2020-12-07 19:50] LABS: ALBUMIN 3.9 g/dl (3.4-5.0)
[2020-12-07 19:51] LABS: BLOOD UREA NITROGEN 17.4 mg/dL (7-18)
[2020-12-07] MEDS: THIAMINE HCL 100 MG TABLET (FP) PO SCH (22:21)
[2020-12-07] MEDS: MELATONIN 5 MG TABLETS PO SCH (22:21)
[2020-12-07] MEDS: SUVOREXANT 15 MG TABLET PO PRN (22:22)
[2020-12-08] MEDS ORDERED: METHADONE HCL 10 MG TABLET ONE (04:57)
[2020-12-08] MEDS ORDERED: METHADONE HCL 40 MG DISPERSABLE TABLET ONE (04:57)
[2020-12-08] MEDS: diazePAM 5 MG TABLET PO SCH ×4 (05:10→22:25)
[2020-12-08] MEDS: METHADONE 160 MG, METHADONE 10 MG PO SCH (05:11)
[2020-12-08] MEDS ORDERED: METHADONE HCL 10 MG TABLET PO SCH (06:00)
[2020-12-08] MEDS ORDERED: COLLOIDAL OATMEAL 1 BAR EACH TP PRN (09:31)
[2020-12-08] MEDS: METHOCARBAMOL 500 MG TABLET PO PRN ×2 (10:18→17:00)
[2020-12-08] MEDS: PRENATAL VITAMINS W/ FOLIC ACID TABLET (FP) PO SCH (10:18)
[2020-12-08] MEDS: hydrOXYzine PAMOATE 50 MG CAPSULE (FP) PO PRN (14:10)
[2020-12-08] MEDS: diazePAM 5 MG TABLET PO PRN (16:57)
[2020-12-08] MEDS: SUVOREXANT 15 MG TABLET PO PRN (22:25)
[2020-12-08] MEDS: THIAMINE HCL 100 MG TABLET (FP) PO SCH (22:26)
[2020-12-08] MEDS: MELATONIN 5 MG TABLETS PO SCH (23:36)
[2020-12-09] MEDS ORDERED: METHADONE HCL 10 MG TABLET ONE (03:56)
[2020-12-09] MEDS ORDERED: METHADONE HCL 40 MG DISPERSABLE TABLET ONE (03:57)
[2020-12-09] MEDS: diazePAM 5 MG TABLET PO SCH ×3 (05:11→22:18)
[2020-12-09] MEDS: METHADONE 160 MG, METHADONE 10 MG PO SCH (05:12)
[2020-12-09 10:10] LABS: BASO % 0.6 % (0-2.0); EOS % 4.9 % (0-4.5); HEMATOCRIT 41.3 % (35.4-49); LYMPH % 35.7 % (8-40); MCH 31.3 pg (25.7-33.7); MCHC 33.8 g/dl (32.0-35.9); MEAN CELL VOLUME 92.4 fl (80-96); MEAN PLT VOLUME 7.8 fl (7.5-11.1); MONO % 8.6 % (3.8-10.2); NEUT % 50.2 % (42.8-82.8); PLATELET COUNT 281 K/MM3 (134-434); RBC 4.47 M/mm3 (4.00-5.60); RDW 13.2 % (11.9-15.9); WHITE BLOOD COUNT 8.4 K/mm3 (4.0-10.0)
[2020-12-09] MEDS: PRENATAL VITAMINS W/ FOLIC ACID TABLET (FP) PO SCH (10:14)
[2020-12-09] MEDS: METHOCARBAMOL 500 MG TABLET PO PRN (10:14)
[2020-12-09] MEDS: hydrOXYzine PAMOATE 50 MG CAPSULE (FP) PO PRN (10:14)
[2020-12-09] MEDS: diazePAM 5 MG TABLET PO PRN (18:19)
[2020-12-09] MEDS: THIAMINE HCL 100 MG TABLET (FP) PO SCH (22:18)
[2020-12-09] MEDS: SUVOREXANT 15 MG TABLET PO PRN (22:18)
[2020-12-09] MEDS: MELATONIN 5 MG TABLETS PO SCH (22:19)
[2020-12-10] MEDS ORDERED: METHADONE HCL 10 MG TABLET ONE (03:56)
[2020-12-10] MEDS ORDERED: METHADONE HCL 40 MG DISPERSABLE TABLET ONE (03:57)
[2020-12-10] MEDS: METHADONE 160 MG, METHADONE 10 MG PO SCH (05:21)
[2020-12-10] MEDS: diazePAM 5 MG TABLET PO SCH ×2 (05:22→17:10)
[2020-12-10] MEDS: PRENATAL VITAMINS W/ FOLIC ACID TABLET (FP) PO SCH (10:13)
[2020-12-10] MEDS: METHOCARBAMOL 500 MG TABLET PO PRN ×3 (10:14→23:11)
[2020-12-10] MEDS: hydrOXYzine PAMOATE 50 MG CAPSULE (FP) PO PRN ×3 (10:15→22:21)
[2020-12-10] MEDS: THIAMINE HCL 100 MG TABLET (FP) PO SCH (22:21)
[2020-12-10] MEDS: MELATONIN 5 MG TABLETS PO SCH (22:22)
[2020-12-11] MEDS ORDERED: METHADONE HCL 40 MG DISPERSABLE TABLET ONE (03:37)
[2020-12-11] MEDS ORDERED: METHADONE HCL 10 MG TABLET ONE (03:37)
[2020-12-11] MEDS: METHADONE 160 MG, METHADONE 10 MG PO SCH (05:12)
[2020-12-11] MEDS ORDERED: diazePAM 5 MG TABLET PO ONE (06:00)
[2020-12-11] MEDS: hydrOXYzine PAMOATE 50 MG CAPSULE (FP) PO PRN (08:39)
[2020-12-11] MEDS: METHOCARBAMOL 500 MG TABLET PO PRN (08:39)
[2020-12-11 09:04] VITALS: BP 142/94; PULSE 78; TEMP 98.3
[2020-12-11] MEDS: PRENATAL VITAMINS W/ FOLIC ACID TABLET (FP) PO SCH (10:31)
== END 2020-12-11 11:06 | disposition other institution (70) | DRG 773 ==
LOC: YASAS 09:17 → Y6N 13:09
PROVIDERS: ADMIT Allergy & Immunology; ATTEND Allergy & Immunology
PROC: HZ2ZZZZ Detoxification Services for Substance Abuse Treatment (ICD-10-PCS; principal; 2020-12-07)
DX: F10.230 Alcohol dependence with withdrawal, uncomplicated (principal); F13.230 Sedative, hypnotic or anxiolytic dependence with withdrawal, uncomplicated; F11.20 Opioid dependence, uncomplicated; F19.280 Other psychoactive substance dependence with psychoactive substance-induced anxiety disorder; F19.282 Other psychoactive substance dependence with psychoactive substance-induced sleep disorder; F19.24 Other psychoactive substance dependence with psychoactive substance-induced mood disorder; F41.9 Anxiety disorder, unspecified; F32.9 Major depressive disorder, single episode, unspecified; B18.1 Chronic viral hepatitis B without delta-agent; B18.2 Chronic viral hepatitis C; B15.9 Hepatitis A without hepatic coma; Z86.19 Personal history of other infectious and parasitic diseases; Z86.69 Personal history of other diseases of the nervous system and sense organs
CPT/HCPCS: 36415; 80053; 85025; 85027; 86780; 93005; 93010; C9803; U0003; U0005

== ENCOUNTER 2021-12-06 10:54 | Inpatient (IN) | payer OTHER ==
[2021-12-06 11:22] VITALS: BMI 27.8
[2021-12-06] MEDS ORDERED: ONDANSETRON *ODT* 4 MG TABLET SL PRN (11:47)
[2021-12-06] MEDS ORDERED: BENZOCAINE/MENTHOL (CHLORASEPTIC ) LOZENGE MM PRN (11:47)
[2021-12-06] MEDS ORDERED: BISMUTH SUBSALICYLATE 524 MG/30 ML PO PRN (11:47)
[2021-12-06] MEDS ORDERED: LOPERAMIDE HCL 2 MG CAPSULE PO PRN (11:47)
[2021-12-06] MEDS ORDERED: IBUPROFEN 400 MG TABLET (FP) PO PRN (11:47)
[2021-12-06] MEDS ORDERED: MAGNESIUM HYDROX 2400MG/30ML ORAL SUSPENSION 30 ML CUP PO PRN (11:47)
[2021-12-06] MEDS ORDERED: MAGNESIUM CITRATE 300 ML BOTTLE PO PRN (11:47)
[2021-12-06] MEDS ORDERED: ACETAMINOPHEN 325 MG TABLET (FP) PO PRN ×2 (11:47)
[2021-12-06] MEDS ORDERED: MAG HYDROX/AL HYDROX/SIMETH 30 ML UNIT-DOSE CUP PO PRN (11:47)
[2021-12-06] MEDS ORDERED: DICYCLOMINE HCL 10 MG CAPSULE PO PRN (11:47)
[2021-12-06] MEDS: diazePAM 5 MG TABLET PO SCH ×3 (12:57→22:08)
[2021-12-06] MEDS: PRENATAL VITAMINS W/ FOLIC ACID TABLET (FP) PO SCH (12:59)
[2021-12-06] MEDS: hydrOXYzine PAMOATE 25 MG CAPSULE (FP) PO SCH ×3 (13:03→22:09)
[2021-12-06] MEDS: MELATONIN 5 MG TABLETS PO SCH (22:09)
[2021-12-06] MEDS: THIAMINE HCL 100 MG TABLET (FP) PO SCH (22:09)
[2021-12-06] MEDS: SUVOREXANT 10 MG TABLET PO PRN (22:10)
[2021-12-07] MEDS ORDERED: methaDONE HCL 40 MG DISPERSABLE TABLET ONE (04:46)
[2021-12-07] MEDS ORDERED: methaDONE HCL 10 MG TABLET ONE (04:46)
[2021-12-07] MEDS: diazePAM 5 MG TABLET PO SCH ×4 (05:19→22:06)
[2021-12-07] MEDS: hydrOXYzine PAMOATE 25 MG CAPSULE (FP) PO SCH ×5 (05:20→22:04)
[2021-12-07] MEDS ORDERED: methaDONE HCL 40 MG DISPERSABLE TABLET PO SCH (10:00)
[2021-12-07] MEDS: PRENATAL VITAMINS W/ FOLIC ACID TABLET (FP) PO SCH (10:18)
[2021-12-07 10:38] LABS: HEMATOCRIT 40.3 % (35.4-49); HEMOGLOBIN 13.3 GM/dL (11.7-16.9); MCH 30.5 pg (25.7-33.7); MEAN CELL VOLUME 92.5 fl (80-96); MEAN PLT VOLUME 8.4 fl (7.5-11.1); PLATELET COUNT 283 10^3/uL (134-434); RBC 4.35 M/mm3 (4.00-5.60); RDW 13.6 % (11.9-15.9); WHITE BLOOD COUNT 9.2 K/mm3 (4.0-10.0)
[2021-12-07 11:07] LABS: ALBUMIN 4.3 g/dl (3.4-5.0); BLOOD UREA NITROGEN 19.2 mg/dL (7-18); CALCIUM 9.3 mg/dL (8.5-10.1)
[2021-12-07 11:10] LABS: CREATININE 1.2 mg/dL (0.55-1.3)
[2021-12-07 11:12] LABS: BILIRUBIN,TOTAL 0.2 mg/dL (0.2-1); TOT PROT 7.7 g/dl (6.4-8.2)
[2021-12-07] MEDS: diazePAM 5 MG TABLET PO PRN (13:46)
[2021-12-07] MEDS ORDERED: PENICILLIN G BENZATHINE 2,400,000 UNIT/4 ML PFS IM ONE ×2 (15:24→19:30)
[2021-12-07] MEDS: METHOCARBAMOL 500 MG TABLET PO PRN (18:16)
[2021-12-07] MEDS: THIAMINE HCL 100 MG TABLET (FP) PO SCH (22:04)
[2021-12-07] MEDS: SUVOREXANT 10 MG TABLET PO PRN (22:11)
[2021-12-07] MEDS: MELATONIN 5 MG TABLETS PO SCH (23:11)
[2021-12-08] MEDS ORDERED: methaDONE HCL 40 MG DISPERSABLE TABLET ONE (04:22)
[2021-12-08] MEDS ORDERED: methaDONE HCL 10 MG TABLET ONE (04:22)
[2021-12-08] MEDS: diazePAM 5 MG TABLET PO SCH ×3 (05:32→22:06)
[2021-12-08] MEDS: hydrOXYzine PAMOATE 25 MG CAPSULE (FP) PO SCH ×5 (07:06→22:06)
[2021-12-08] MEDS: diazePAM 5 MG TABLET PO PRN ×2 (10:28→17:53)
[2021-12-08] MEDS: PRENATAL VITAMINS W/ FOLIC ACID TABLET (FP) PO SCH (10:28)
[2021-12-08] MEDS: METHOCARBAMOL 500 MG TABLET PO PRN ×2 (10:30→17:52)
[2021-12-08] MEDS: THIAMINE HCL 100 MG TABLET (FP) PO SCH (22:06)
[2021-12-08] MEDS: MELATONIN 5 MG TABLETS PO SCH (22:06)
[2021-12-09 00:06] LABS: SARS-CoV-2 NAA Not Detected (Not Detected)
[2021-12-09] MEDS ORDERED: methaDONE HCL 40 MG DISPERSABLE TABLET ONE (03:26)
[2021-12-09] MEDS ORDERED: methaDONE HCL 10 MG TABLET ONE (03:26)
[2021-12-09] MEDS: hydrOXYzine PAMOATE 25 MG CAPSULE (FP) PO SCH ×5 (05:22→22:12)
[2021-12-09] MEDS: diazePAM 5 MG TABLET PO SCH ×2 (05:25→18:14)
[2021-12-09] MEDS: diazePAM 5 MG TABLET PO PRN (10:12)
[2021-12-09] MEDS: PRENATAL VITAMINS W/ FOLIC ACID TABLET (FP) PO SCH (10:12)
[2021-12-09] MEDS: METHOCARBAMOL 500 MG TABLET PO PRN ×2 (14:18→22:13)
[2021-12-09] MEDS: MELATONIN 5 MG TABLETS PO SCH (22:12)
[2021-12-09] MEDS: THIAMINE HCL 100 MG TABLET (FP) PO SCH (22:12)
[2021-12-10] MEDS ORDERED: methaDONE HCL 10 MG TABLET ONE (04:08)
[2021-12-10] MEDS ORDERED: methaDONE HCL 40 MG DISPERSABLE TABLET ONE (04:09)
[2021-12-10] MEDS: hydrOXYzine PAMOATE 25 MG CAPSULE (FP) PO SCH ×2 (04:59→09:57)
[2021-12-10] MEDS ORDERED: diazePAM 5 MG TABLET PO ONE (06:00)
[2021-12-10 09:13] VITALS: BP 122/83; PULSE 101; TEMP 97.3
[2021-12-10] MEDS: PRENATAL VITAMINS W/ FOLIC ACID TABLET (FP) PO SCH (09:57)
== END 2021-12-10 08:59 | disposition home or self-care (01) | DRG 773 ==
LOC: YASAS 10:54 → Y3N 11:55
PROVIDERS: ADMIT Allergy & Immunology; ATTEND Surgery
PROC: HZ2ZZZZ Detoxification Services for Substance Abuse Treatment (ICD-10-PCS; principal; 2021-12-06)
DX: F11.23 Opioid dependence with withdrawal (principal); F13.20 Sedative, hypnotic or anxiolytic dependence, uncomplicated; F17.210 Nicotine dependence, cigarettes, uncomplicated; F19.280 Other psychoactive substance dependence with psychoactive substance-induced anxiety disorder; F19.24 Other psychoactive substance dependence with psychoactive substance-induced mood disorder; E78.5 Hyperlipidemia, unspecified; G40.509 Epileptic seizures related to external causes, not intractable, without status epilepticus; M54.50 Low back pain, unspecified; G89.29 Other chronic pain; Z86.19 Personal history of other infectious and parasitic diseases
CPT/HCPCS: 36415; 80053; 85027; 86593; 86780; C9803-CS; U0003; U0005

== ENCOUNTER 2024-10-11 12:51 | Inpatient (IN) | payer OTHER ==
[2024-10-11 13:35] VITALS: BMI 26.8
[2024-10-11] MEDS ORDERED: LOPERAMIDE HCL 2 MG CAPSULE PO PRN (13:50)
[2024-10-11] MEDS ORDERED: NALOXONE (NARCAN) HCL 4 MG/0.1 ML SPRAY NS PRN (13:50)
[2024-10-11] MEDS ORDERED: MAG HYDROX/AL HYDROX/SIMETH 30 ML UNIT-DOSE CUP PO PRN (13:50)
[2024-10-11] MEDS ORDERED: ACETAMINOPHEN 325 MG TABLET (FP) PO PRN (13:50)
[2024-10-11] MEDS ORDERED: ONDANSETRON *ODT* 4 MG TABLET SL PRN (13:50)
[2024-10-11] MEDS ORDERED: IBUPROFEN 400 MG TABLET (FP) PO PRN (13:50)
[2024-10-11] MEDS ORDERED: MAGNESIUM HYDROX 2400MG/30ML ORAL SUSPENSION 30 ML CUP PO PRN (13:50)
[2024-10-11] MEDS ORDERED: DICYCLOMINE HCL 10 MG CAPSULE PO PRN (13:50)
[2024-10-11] MEDS ORDERED: P-EPHED 60MG/TRIPROLIDI 2.5MG TABLET PO PRN (13:50)
[2024-10-11] MEDS ORDERED: BISMUTH SUBSALICYLATE 524 MG/30 ML PO PRN (13:50)
[2024-10-11] MEDS ORDERED: IBUPROFEN 600 MG TABLET (FP) PO PRN (13:50)
[2024-10-11] MEDS ORDERED: POLYETHYLENE GLYCOL (HEALTHYLAX) 3350 17 GM PACKET PO PRN (13:50)
[2024-10-11] MEDS ORDERED: guaiFENesin 600 MG TABLET.ER (FP) PO PRN (13:50)
[2024-10-11] MEDS ORDERED: BENZOCAINE/MENTHOL (CHLORASEPTIC ) LOZENGE MM PRN (13:50)
[2024-10-11] MEDS ORDERED: BENZONATATE 200 MG CAPSULE PO PRN (13:50)
[2024-10-11] MEDS: propRANOLol HCL 10 MG TABLET PO ONE (14:27)
[2024-10-11] MEDS ORDERED: cloNIDine HCL 0.1 MG TABLET PO PRN (17:36)
[2024-10-11] MEDS: methaDONE HCL 10 MG TABLET (FOR DETOX USE ONLY) PO ONE (17:55)
[2024-10-11] MEDS: THIAMINE 100 MG TABLET PO SCH (22:06)
[2024-10-11] MEDS: MELATONIN 5 MG TABLETS PO SCH (22:06)
[2024-10-11] MEDS: hydrOXYzine PAMOATE 25 MG CAPSULE (FP) PO PRN (22:07)
[2024-10-12] MEDS ORDERED: methaDONE HCL 10 MG TABLET PO ONE (08:15)
[2024-10-12] MEDS: methaDONE HCL 40 MG DISPERSABLE TABLET PO ONE (10:16)
[2024-10-12] MEDS: METHOCARBAMOL 500 MG TABLET PO PRN (10:16)
[2024-10-12] MEDS: cloNIDine HCL 0.1 MG TABLET PO SCH (10:17)
[2024-10-12] MEDS: PRENATAL VITAMINS W/ FOLIC ACID TABLET (FP) PO SCH (10:17)
[2024-10-12 14:49] LABS: HEMATOCRIT 37.1 % (40.1-51.0); HEMOGLOBIN 11.8 g/dL (13.7-17.5); MCHC 31.8 g/dl (32.3-36.5); MEAN CELL VOLUME 91.6 fl (79.0-92.2); MEAN PLT VOLUME 8.9 fl (9.4-12.4); PLATELET COUNT 353 x10^3/uL (163-337); RDW 13.9 % (12.1-15.9)
[2024-10-12 15:00] LABS: POTASSIUM 4.1 mmol/L (3.5-5.1)
[2024-10-12 15:21] LABS: CALCIUM 8.8 mg/dL (8.5-10.1)
[2024-10-12 15:22] LABS: ALBUMIN 3.4 g/dl (3.4-5.0); BLOOD UREA NITROGEN 15.8 mg/dL (7-18)
[2024-10-12 15:27] LABS: BILIRUBIN,TOTAL 0.6 mg/dL (0.2-1); TOT PROT 6.2 g/dl (6.4-8.2)
[2024-10-12] MEDS: methaDONE HCL 10 MG TABLET PO PRN (17:52)
[2024-10-12] MEDS: SUVOREXANT 10 MG TABLET PO PRN (22:13)
[2024-10-13] MEDS: methaDONE 40 MG, methaDONE 10 MG PO ONE (09:49)
[2024-10-13] MEDS ORDERED: methaDONE HCL 10 MG TABLET (FOR DETOX USE ONLY) PO ONE (10:00)
[2024-10-14] MEDS: methaDONE 40 MG, methaDONE 20 MG PO ONE (09:32)
[2024-10-14] MEDS: cloNIDine HCL 0.1 MG TABLET PO PRN (15:15)
[2024-10-15] MEDS: methaDONE 40 MG, methaDONE 30 MG PO ONE (09:35)
[2024-10-15] MEDS ORDERED: methaDONE HCL 10 MG TABLET (FOR DETOX USE ONLY) PO ONE (10:00)
[2024-10-16] MEDS: methaDONE HCL 40 MG DISPERSABLE TABLET PO ONE (09:26)
[2024-10-16] MEDS: SUVOREXANT 10 MG TABLET PO PRN (22:18)
[2024-10-16] MEDS: MELATONIN 5 MG TABLETS PO SCH (22:20)
[2024-10-17] MEDS: methaDONE 80 MG, methaDONE 10 MG PO ONE (09:18)
[2024-10-18] MEDS: methaDONE 80 MG, methaDONE 10 MG PO ONE (09:11)
[2024-10-18] MEDS ORDERED: methaDONE HCL 10 MG TABLET PO ONE (10:00)
[2024-10-18 11:05] VITALS: BP 120/80; PULSE 80; RESP 18; TEMP 97.9
== END 2024-10-18 11:39 | disposition other institution (70) | DRG 773 ==
LOC: YASAS 12:51 → Y3N 14:14
PROVIDERS: ADMIT Neuromusculoskeletal Medicine & OMM; ATTEND Allergy & Immunology
PROC: HZ2ZZZZ Detoxification Services for Substance Abuse Treatment (ICD-10-PCS; principal; 2024-10-11)
DX: F11.23 Opioid dependence with withdrawal (principal); F13.20 Sedative, hypnotic or anxiolytic dependence, uncomplicated; F19.282 Other psychoactive substance dependence with psychoactive substance-induced sleep disorder; F19.280 Other psychoactive substance dependence with psychoactive substance-induced anxiety disorder; F90.9 Attention-deficit hyperactivity disorder, unspecified type; E78.5 Hyperlipidemia, unspecified; I10 Essential (primary) hypertension; M54.50 Low back pain, unspecified; G89.29 Other chronic pain
CPT/HCPCS: 36415; 80053; 80305; 80307; 85027; 86780; 87811; 93005; 93010

== ENCOUNTER 2024-10-18 11:38 | Inpatient (IN) | payer OTHER ==
[2024-10-18] MEDS ORDERED: ACETAMINOPHEN 325 MG TABLET (FP) PO PRN (12:03)
[2024-10-18] MEDS ORDERED: BENZONATATE 200 MG CAPSULE PO PRN (12:03)
[2024-10-18] MEDS ORDERED: NALOXONE (NARCAN) HCL 4 MG/0.1 ML SPRAY NS PRN (12:03)
[2024-10-18] MEDS ORDERED: guaiFENesin 600 MG TABLET.ER (FP) PO PRN (12:03)
[2024-10-18] MEDS ORDERED: NALOXONE HCL 0.4 MG/ML VIAL IVPUSH PRN (12:03)
[2024-10-18] MEDS ORDERED: MAG HYDROX/AL HYDROX/SIMETH 30 ML UNIT-DOSE CUP PO PRN (12:03)
[2024-10-18] MEDS ORDERED: LOPERAMIDE HCL 2 MG CAPSULE PO PRN (12:03)
[2024-10-18] MEDS ORDERED: NICOTINE POLACRILEX 2 MG GUM BUC PRN (12:03)
[2024-10-18] MEDS ORDERED: MAGNESIUM HYDROX 2400MG/30ML ORAL SUSPENSION 30 ML CUP PO PRN (12:03)
[2024-10-18] MEDS ORDERED: POLYETHYLENE GLYCOL (HEALTHYLAX) 3350 17 GM PACKET PO PRN (12:03)
[2024-10-18] MEDS ORDERED: NICOTINE POLACRILEX 2 MG LOZENGE BC PRN (12:03)
[2024-10-18] MEDS ORDERED: BENZOCAINE/MENTHOL (CHLORASEPTIC ) LOZENGE MM PRN (12:03)
[2024-10-18] MEDS: THIAMINE 100 MG TABLET PO SCH (21:50)
[2024-10-18] MEDS: SUVOREXANT 10 MG TABLET PO PRN (21:50)
[2024-10-18] MEDS: METHOCARBAMOL 500 MG TABLET PO PRN (21:51)
[2024-10-18] MEDS ORDERED: MELATONIN 5 MG TABLETS PO SCH (22:00)
[2024-10-19] MEDS: methaDONE 80 MG, methaDONE 10 MG PO SCH (05:52)
[2024-10-19] MEDS ORDERED: methaDONE HCL 10 MG TABLET PO SCH (06:00)
[2024-10-19] MEDS: PRENATAL VITAMINS W/ FOLIC ACID TABLET (FP) PO SCH (11:06)
[2024-10-20] MEDS: hydrOXYzine PAMOATE 25 MG CAPSULE (FP) PO PRN (16:28)
[2024-10-20] MEDS: SUVOREXANT 15 MG TABLET PO PRN (21:22)
[2024-10-22] MEDS: SUVOREXANT 15 MG TABLET PO PRN (21:27)
[2024-10-24] MEDS: SUVOREXANT 15 MG TABLET PO PRN (21:44)
[2024-10-26] MEDS: SUVOREXANT 15 MG TABLET PO PRN (21:27)
[2024-10-28] MEDS: SUVOREXANT 15 MG TABLET PO PRN (21:30)
[2024-10-31] MEDS ORDERED: SUVOREXANT 10 MG TABLET PO PRN (22:00)
[2024-11-01] MEDS: SUVOREXANT 15 MG TABLET PO PRN (21:25)
[2024-11-03] MEDS: SUVOREXANT 15 MG TABLET PO PRN (21:09)
[2024-11-07] MEDS: IBUPROFEN 600 MG TABLET (FP) PO PRN (02:02)
[2024-11-07] MEDS: SUVOREXANT 15 MG TABLET PO PRN (21:10)
[2024-11-09] MEDS: IBUPROFEN 400 MG TABLET (FP) PO PRN (06:26)
[2024-11-09] MEDS: BENZOCAINE 20 % GEL TUBE MM PRN (13:31)
[2024-11-09] MEDS ORDERED: SUVOREXANT 10 MG TABLET PO PRN (22:00)
[2024-11-10] MEDS: SUVOREXANT 15 MG TABLET PO PRN (21:07)
[2024-11-11 05:27] VITALS: TEMP 97.5
[2024-11-12] MEDS ORDERED: ALBUTEROL SO4 HFA INHALER IH PRN (12:42)
[2024-11-12] MEDS: SUVOREXANT 15 MG TABLET PO PRN (21:04)
[2024-11-13 05:55] VITALS: BP 129/72; PULSE 69; RESP 17
== END 2024-11-13 09:05 | disposition home or self-care (01) | DRG 772 ==
LOC: YASAS 11:38 → Y3NR 11:40 → Y3W 10-19 10:48
PROVIDERS: ADMIT Neuromusculoskeletal Medicine & OMM; ATTEND Psychiatry & Neurology Pain Medicine
PROC: HZ42ZZZ Group Counseling for Substance Abuse Treatment, Cognitive-Behavioral (ICD-10-PCS; principal; 2024-10-18)
DX: F11.20 Opioid dependence, uncomplicated (principal); F14.20 Cocaine dependence, uncomplicated; F10.10 Alcohol abuse, uncomplicated; F41.9 Anxiety disorder, unspecified; F90.9 Attention-deficit hyperactivity disorder, unspecified type; E78.5 Hyperlipidemia, unspecified; M54.50 Low back pain, unspecified; G89.29 Other chronic pain